=== PATIENT | female | born 1960 | race Caucasian/White ===

== ENCOUNTER 2019-11-18 08:40 | Outpatient (CLI) | payer OTHER, SELFPAY ==
--- NOTE | ~2019-11-18 | MM_ITS ---
EXAMINATION: MM screening kandy BI w андрей HISTORY: Screening mammogram TECHNIQUE: Craniocaudal and mediolateral oblique 3-D tomosynthesis images were obtained and synthetic 2-D images were generated. CAD analysis was submitted and interpreted. COMPARISON: No prior mammogram is available for comparison at this institution. BREAST PARENCHYMAL COMPOSITION: There are scattered areas of fibroglandular density. FINDINGS: RIGHT BREAST: There is no evidence of suspicious mass, calcification, or architectural distortion to suggest malignancy. LEFT BREAST: There is focal asymmetry in the posterior third of the upper outer quadrant of the breas t. IMPRESSION: 1. Focal asymmetry of the left breast which may represent the patient's baseline however no compariso n is currently available. 2. Comparison with prior mammograms is necessary. BI-RADS Category 0: Incomplete: Needs comparison with prior mammograms. Reviewed, dictated and finalized at location A. IMPRESSION: 1. Focal asymmetry of the left breast which may represent the patient's baselin e however no comparison is currently available. 2. Comparison with prior mammograms is necessary. BI-RADS Category 0: Incomplete: Needs comparison with prior mammograms.
== END 2019-11-18 08:41 | disposition home or self-care (01) ==
LOC: ANHIMG 08:44
PROVIDERS: PCP Family Medicine; Visit Provider Nurse Practitioner Family
DX: Z12.31 Encounter for screening mammogram for malignant neoplasm of breast (principal); R92.8 Other abnormal and inconclusive findings on diagnostic imaging of breast
CPT/HCPCS: 77063; 77067

== ENCOUNTER 2021-01-10 15:49 | Emergency (ER) | payer OTHER, SELFPAY ==
[2021-01-10 16:04] VITALS: BP 109/65; PULSE 79; RESP 18; TEMP 36.5; O2SAT 99
--- NOTE | 2021-01-10 16:12 | ED.URI ---
HPI - URI/Sore Throat General Chief Complaint: Upper Respiratory Infection Stated Complaint: Stuffy Nose,Sore throat,Fatigue History of Present Illness HPI Narrative: This is a 60 year old that comes in complaining of not feeling well for the past week. According to patient she is unvaccinated and she is having fatigue off and on and she is having sinus drainage with a headache sporadically some dizziness off and on . Patient denies taking anything for her symptoms. Related Data Home Medications Medication Instructions Recorded Confirmed meloxicam 15 mg tablet 15 mg PO DAILY 03/27/19 01/10/21 propranolol 20 mg tablet 20 mg PO Q12H 03/27/19 01/10/21 duloxetine 30 mg capsule,delayed 30 mg PO DAILY 03/29/19 01/10/21 release duloxetine 60 mg capsule,delayed 60 mg PO DAILY cap 03/29/19 01/10/21 release atorvastatin 10 mg tablet 10 mg PO DAILY tablet 12/10/20 01/10/21 sertraline 100 mg tablet 150 mg PO DAILY tablet 12/10/20 01/10/21 Allergies Allergy/AdvReac Type Severity Reaction Status Date / Time erythromycin base Allergy Unknown Rash Verified 01/10/21 16:32 Penicillins Allergy Unknown rash Verified 01/10/21 16:32 Review of Systems Review of Systems: CONSTITUTIONAL: Denies fever, chills, or sweats. EYES: Denies visual changes, redness, or discharge. ENT: reports rhinorrhea, congestion, sore throat, or otalgia. CARDIOVASCULAR:Denies chest pain, palpitations, or edema. RESPIRATORY: reports cough or dyspnea. GASTROINTESTINAL: Denies abdominal pain, nausea, vomiting, or diarrhea. GENITOURINARY: Denies dysuria or hematuria. SKIN:[Denies rash or itching. MUSCULOSKELETAL:Denies back pain, joint pain, or myalgia. NEUROLOGIC: Denies headache, numbness, or weakness. PSYCHIATRIC:Denies anxiety or depression [facility] Past Medical History Medical History (Updated 01/10/21 @ 16:48 by Lydia Gómez NP) History of broken nose History of trigger finger 2017 Surgical History Surgical History (Updated 12/30/20 @ 08:23 by Shannon Andrade NP-C) Hx of cervical spine surgery 1997 & 2012 Hx of laparoscopy Hx of oophorectomy Hx of tonsillectomy Family History Family History Father Heart disease Acute myocardial infarction Sibling Asthma Hypertension Social History Social History Smoking status: Never smoker Second hand tobacco smoke exposure: No Alcohol intake: current Alcohol use details: social Substance use: never Comments At time as signature, I have reviewed and agree with nursing past medical, social, surgical and family history. Please see nursing chart for further information. There is no relevant family history pertinent to the presenting complaint. Exam Narrative: GENERAL:Well-appearing, well-nourished, and in no acute distress. HEAD:Normocephalic EYES: PERRLA ENT: Nares clear, no rhinorrhea or epistaxis. Mucous membranes moist. Postnasal drainage noted NECK: Supple. CHEST: Clear to auscultation. No respiratory distress. HEART: Regular rate and rhythm. Normal peripheral pulses. ABDOMEN: Soft, nontender, nondistended, normal active bowel sounds. EXTREMITIES: Normal range of motion. No edema. SKIN: Warm, dry, no rash. NEURO: No focal deficits. Alert and oriented x3. 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
[2021-01-12 19:51] LABS: SARS-CoV-2 RNA PCR Negative
== END 2021-01-10 17:01 | disposition home or self-care (01) ==
PROVIDERS: Emergency Provider Nurse Practitioner Family; PCP Internal Medicine
DX: B34.9 Viral infection, unspecified (principal); J30.2 Other seasonal allergic rhinitis; Z20.822 Contact with and (suspected) exposure to COVID-19
CPT/HCPCS: 87426; 99213; C9803; G0463; U0003; U0005

== ENCOUNTER → 2021-04-15 13:01 | Outpatient (CLI) | payer OTHER, SELFPAY ==
--- NOTE | ~2021-04-15 | US_ITS ---
EXAMINATION: US thyroid EXAM DATE: 04/15/2021 13:28 INDICATION: Nontoxic goiter. TECHNIQUE: Multiple grayscale and Doppler images of the thyroid were obtained (by a technologist who performed the scan) and subsequently reviewed. Individual nodules and recommendations may be reporte d in accordance with TI-RADS system as designated by the 2017 ACR White Paper TI-RADS committee. The re is no prior study for comparison. FINDINGS: The right thyroid lobe measures 4.5 x 1.9 x 1.6 cm, the left measuring 4.2 x 1.7 x 1.8 cm. Homogeneou s thyroid echogenicity. In the left thyroid lobe there is a nodule measuring 1.8 x 1.0 x 1.0 cm, solid (2 points), hypoechoic (2 points), wider than tall, ill-defined margin, containing punctate echogenic foci consistent with microcalcification (3 points), category TR5 for this nodule. 4 mm contiguous nodule. In the right thyroid lobe there is a nodule measuring 1.5 x 0.9 x 1.0, mixed cystic and solid (1 poin t), hypoechoic (2 points), wider than tall, smooth well defined margin, with small echogenic foci whi ch appear to be along the deep aspects of small cystic spaces, category TR3 for this nodule. IMPRESSION: 1. Recommend ultrasound-guided biopsy of the dominant, left-sided thyroid nodule. Follow-up ultrasou nd in one year. 2. Mild thyromegaly. Reviewed, dictated and finalized at location A. FACTURING MILLWRIGHT IMPRESSION: 1. Recommend ultrasound-guided biopsy of the dominant, left-sided thyroid nodu le. Follow-up ultrasound in one year. 2. Mild thyromegaly.
== END ==
PROVIDERS: PCP Internal Medicine; Visit Provider Advanced Practice Midwife
DX: E04.1 Nontoxic single thyroid nodule (principal); E04.9 Nontoxic goiter, unspecified
CPT/HCPCS: 76536

== ENCOUNTER 2021-05-21 09:26 | Outpatient (CLI) | payer OTHER, SELFPAY ==
--- NOTE | ~2021-05-21 | US_ITS ---
EXAMINATION: US FNA w image guidance DATE: 05/21/2021 10:46 INDICATION: Nontoxic single thyroid nodule TECHNIQUE: A time-out was performed to verify the patient's name, date of , and procedure to be performed . The procedure and its benefits and risks were discussed with the patient. Risks specifically discus sed included bleeding and infection. The patient understood the risks and agreed to proceed. The neck was prepped and draped in the usual sterile manner. 3 mL 1% lidocaine was used for local anesthesia . 6 passes were made with a 25G needle into the lesion. Appropriate needle location was documented with continuous sonographic guidance. The specimens were passed to the medical technologist clinical in the room. A sterile bandage was applied. There were no immediate complications. FINDINGS: Grayscale ultrasound images demonstrate biopsy needles advanced into the 1.7 cm TI RADS 5 left thyroi d nodule of concern. IMPRESSION: 1. Successful ultrasound-guided fine needle aspiration of . Reviewed, dictated and finalized at location A. EL CAPTAIN
== END 2021-05-21 09:27 | disposition home or self-care (01) ==
LOC: ANHIMG 09:27
PROVIDERS: PCP Internal Medicine; Visit Provider Internal Medicine Endocrinology, Diabetes & Metabolism
DX: E04.1 Nontoxic single thyroid nodule (principal)
CPT/HCPCS: 10005; 88173; 88305

== ENCOUNTER 2021-08-26 17:21 | Outpatient (CLI) | payer OTHER, SELFPAY ==
--- NOTE | ~2021-08-26 | DEXA_ITS ---
Bone Density Report Name: JONO MUNGUIA Age: 61 Sex: Female Ethnicity: White Date of : 1960 Indication: postmenopausal; screening for osteoporosis; Referring Provider: CHARISMA VELASQUEZ Study: Bone densitometry was performed. Exam Date: August 26, 2021 Accession number: [id number] Bone Density: Region BMD T-score Z-score Classification AP Spine(L1, L4) 1.233 1.8 3.4 Normal Femoral Neck (Left) 0.909 0.5 2.0 Normal Total Hip (Left) 1.071 1.1 2.2 Normal Femoral Neck (Right) 0.925 0.7 2.1 Normal Total Hip (Right) 1.034 0.8 1.9 Normal Total Hip Mean 1.053 1.0 2.1 Normal World Health Organization criteria for BMD impression classify patients as: Normal (T-score at or above -1.0), Osteopenia (T-score between -1.0 and -2.5), or Osteoporosis (T-score at or below -2.5). Clinical Information Provided by Patient: Has used the following medications: Vitamin D Patient maximum height was 67 Menopause Age: 50 No regular weight bearing exercise Onset of menses at age 11 Number of children 0 Impression: The patient has normal bone mass. Discussion: BONE DENSITY IS ABOVE THE MINIMUM DESIRABLE LEVEL AT ALL SKELETAL SITES TESTED. This patient?s bone mineral density is above the minimum desirable level (T-score -1.0 or better) at all sites measured. The patient should follow a healthful lifestyle (good nutrition with adequate calcium and vitamin D, and appropriate weight-bearing exercise). Follow-Up: Consider repeating this study in 5 years or sooner if there is some new clinical indication. Reported by: LISY on 08/26/2021 5:51:00 PM. Reviewed, dictated and finalized at location Shanta MARSH
== END 2021-08-26 17:22 | disposition home or self-care (01) ==
PROVIDERS: PCP Nurse Practitioner; Visit Provider Advanced Practice Midwife
DX: M81.0 Age-related osteoporosis without current pathological fracture (principal)
CPT/HCPCS: 77080

== ENCOUNTER 2021-10-05 15:40 | Outpatient (CLI) | payer OTHER, SELFPAY ==
--- NOTE | ~2021-10-05 | MM_ITS ---
EXAMINATION: MM screening kandy BI w андрей HISTORY: Screening mammogram TECHNIQUE: Craniocaudal and mediolateral oblique 3-D tomosynthesis images were obtained and synthetic 2-D images were generated. CAD analysis was submitted and interpreted. COMPARISON: 11/18/2019, 09/24/2017, 02/02/2016 bilateral screening mammogram examinations BREAST PARENCHYMAL COMPOSITION: There are scattered areas of fibroglandular density. FINDINGS: There is no evidence of suspicious mass, calcification, or architectural distortion to sugg est malignancy in either breast. There has been no suspicious interval change. IMPRESSION: 1. No mammographic evidence of malignancy. 2. Recommend routine screening mammography in one year. BI-RADS Category 1: Negative Reviewed, dictated and finalized at location A.
== END 2021-10-05 15:41 | disposition home or self-care (01) ==
LOC: ANHIMG 15:41
PROVIDERS: PCP Nurse Practitioner; Visit Provider Advanced Practice Midwife
DX: Z12.31 Encounter for screening mammogram for malignant neoplasm of breast (principal)
CPT/HCPCS: 77063; 77067

== ENCOUNTER → 2022-09-01 15:49 | Outpatient (CLI) | payer OTHER, SELFPAY ==
--- NOTE | ~2022-09-01 | US_ITS ---
EXAMINATION: US thyroid DATE: 09/01/2022 16:15 INDICATION: Single thyroid nodule TECHNIQUE: Multiple ultrasound images of the thyroid were obtained. COMPARISON: 04/15/2021 FINDINGS: The right thyroid lobe measures 4.9 x 2.0 x 1.6 cm. The left thyroid lobe measures 4.5 x 1.7 x 1.5 c m. Slight decrease in size of a 1.6 cm solid hypoechoic wider than tall nodule with smooth echogenic margins and with punctate echogenic foci in the left thyroid lobe (TI-RADS 5, highly suspicious , FNA if >=1.0 cm, annual followup is >0.5 cm) with interval biopsy reported as consistent with benign fo llicular nodule with features of hemorrhagic cyst . There are two additional right thyroid nodules wi th identical imaging features, also TI RADS 5, the larger measuring 1.6 cm and the smaller measuring 5 mm, both without interval change. There is normal echotexture, echogenicity and vascular flow throu ghout the remainder of the thyroid gland. IMPRESSION: 1. No interval change in three TI-RADS 5 nodules with interval benign biopsy of the 1.6 cm left thyro id nodule. The second 1.6 cm nodule in the right thyroid would meet criteria for ultrasound-guided bi opsy although given the greater than one year of stability could consider continued annual follow-up. Reviewed, dictated and finalized at location A. IMPRESSION: 1. No interval change in three TI-RADS 5 nodules with interval benign biopsy of the 1.6 cm left thyroid nodule. The second 1.6 cm nodule in the right thyroid would meet criteria for ultrasound-guided biopsy although given the greater kevin n one year of stability could consider continued annual follow-up.
== END ==
PROVIDERS: PCP Internal Medicine Endocrinology, Diabetes & Metabolism; Visit Provider Internal Medicine Endocrinology, Diabetes & Metabolism
DX: E04.1 Nontoxic single thyroid nodule (principal)
CPT/HCPCS: 76536

== ENCOUNTER 2022-10-23 15:50 | Emergency (ER) | payer OTHER, SELFPAY ==
[2022-10-23 16:04] VITALS: BP 113/67; PULSE 70; RESP 16; TEMP 36.6; O2SAT 100
--- NOTE | 2022-10-23 16:19 | ED.EAR ---
HPI - Ear Problem General Chief complaint: Ear Stated complaint: L EARACHE Time Seen by Provider: 10/23/22 16:12 Source: patient, RN notes reviewed and old records reviewed Mode of arrival: ambulatory Limitations: no limitations History of Present Illness HPI Narrative: 62 year old female who presents to [facility] care with complaints of left ear pain since Monday but patient reports that she has had intermittent ear pain, sinus congestion with drainage, some headache discomfort intermittently for over 2 weeks. Patient reports that she took a meloxicam today for her discomfort and she was having some back ache also. Patient reports that she has not been taking any kind of decongestant or any antihistamines despite having increased sinus congestion and drainage. Patient denies any known fevers, chills or sweats. MD Complaint: ear pain and other (headache ,sinus congestion and drainage ) Location: left ear Duration: intermittent Severity: moderate Discharge from ear: Reports no Associated symptoms ear: headache, rhinorrhea and other (sinus congestion) Treatment prior to arrival: other (MELOXICAN) Related Data Home Medications Medication Instructions Recorded Confirmed magnesium with zinc PO 07/02/21 07/19/22 cholecalciferol (vitamin D3) 50 50 mcg PO DAILY 07/07/21 07/19/22 mcg (2,000 unit) capsule bupropion HCl 100 mg tablet,12 hr mg PO 10/23/22 10/23/22 sustained-release Allergies Allergy/AdvReac Type Severity Reaction Status Date / Time erythromycin base Allergy Unknown Rash Verified 10/23/22 16:02 Penicillins Allergy Unknown rash Verified 10/23/22 16:02 Review of Systems Review of Systems: CONSTITUTIONAL: Denies malaise, chills, sweats, or fever. EYES: Denies visual changes, redness, or discharge. ENT: Reports rhinorrhea, congestion, sinus pressure/ pain, otalgia and raspy sore throat today. CARDIOVASCULAR: Denies chest pain, palpitations, or edema. RESPIRATORY: Reports no cough.? Denies dyspnea. GASTROINTESTINAL: Denies abdominal pain, nausea, vomiting, diarrhea SKIN: Denies rash or itching. MUSCULOSKELETAL: Denies myalgia. NEUROLOGIC: Positive for frontal headaches All systems reviewed & are unremarkable except as noted in HPI and below PMFSH Past Medical History Medical History History of broken nose History of trigger finger 2017 Surgical History Surgical History Hx of cervical spine surgery 1997 & 2012 Hx of laparoscopy Hx of oophorectomy Hx of tonsillectomy Family History Family History Father Heart disease Acute myocardial infarction Sibling Asthma Hypertension Social History Social History Smoking status: Never smoker Second hand tobacco smoke exposure: No Alcohol intake: current Alcohol use details: social Substance use: never Substance use type: does not use Lack of Transportation: No Lack of Food: Sometimes True Current Housing: I Have Housing Concerned About Future Housing: No Difficulty Paying Gas/Electric Bills: No Difficulty Paying for Meds: No Currently Unemployed: No Education: High School Diploma/GED Difficulty w/ Childcare or Family Care: No Comments At time of signature, agree with nursing past medical, surgical, social and family history. There is no relevant family history pertinent to the presenting complaint Exam Narrative: GENERAL: Well-appearing, well-nourished, and in no acute distress. HEAD: Normocephalic EYES: PERRLA, conjunctivae clear ENT: Nares clear, turbinates edematous and erythematous, clear discharge. Mucous membranes moist. TM pearly jennings with dull light reflex bilaterally; no tragal tenderness. Oropharynx erythematous without lesions. Tonsils not present and
== END 2022-10-23 16:30 | disposition home or self-care (01) ==
PROVIDERS: Emergency Provider Registered Nurse; PCP Nurse Practitioner
DX: H92.02 Otalgia, left ear (principal); J06.9 Acute upper respiratory infection, unspecified
CPT/HCPCS: 99213; G0463

== ENCOUNTER 2023-03-22 12:47 | Outpatient (CLI) | payer OTHER, MEDICAID, SELFPAY ==
--- NOTE | ~2023-03-22 | US_ITS ---
EXAMINATION: US FNA w image guidance DATE: 03/22/2023 14:02 INDICATION: Right thyroid nodule. TECHNIQUE: The procedure and its benefits and risks were discussed with the patient. Risks specifically discusse d included bleeding. The patient verbalized understanding of the risks and agreed to proceed. The nec k was prepped and draped in the usual sterile manner. 1% lidocaine was used for local anesthesia. 6 passes were made with a 25G needle into the lesion under ultrasound guidance. There were no immedia te complications. FINDINGS: Grayscale ultrasound images demonstrate needles advanced into a 1.7 cm nodule in right thyroid lobe f or biopsy. IMPRESSION: 1. Ultrasound-guided fine needle aspiration of a right thyroid nodule. Reviewed, dictated and finalized at location A. STOCK CARETAKER
== END 2023-03-22 12:48 | disposition home or self-care (01) ==
PROVIDERS: PCP Nurse Practitioner Family; Visit Provider Internal Medicine
DX: E04.2 Nontoxic multinodular goiter (principal)
CPT/HCPCS: 10005; 88173; 88305

== ENCOUNTER 2024-08-07 07:30 | Outpatient (CLI) | payer OTHER, MEDICARE, SELFPAY ==
--- OUTSIDE RECORDS SUMMARY | 2024-08-07 07:39 | XMS_ITS | Clinical Summary ---
Author Organization [facility] Address [address] [place] [address] Care Team Providers Care Community Manager Name Role Phone Unavailable Primary Care Provider Unavailabl e Source Comments [facility],non-owned Affiliates and Associated Physician Practices is amultiple site organization consisting of ambulatory clinics and hospital sitesin [place], [place], [place] and [place]. This disclosure is being madepursuant to the Care Everywhere program and may not contain all information available regarding this patient. Last updated 18.[facility] Allergies Active Allergy Reactions Criticality Noted Date Comments Erythromycin 01/11/2017 Penicillins 01/11/2017 Medications * Be aware that medications may not be up to date on this document. Alwaysverify current medications with the patient. Medication Sig Dispensed Refills Start Date End Date Status CLONAZEPAM PO Active SPIRONOLACTONE PO Active DULoxetine HCl (CYMBALTA PO) Active TRAMADOL HCL EX Active Social History Tobacco Use Types Packs/Day Years Used Date Smoking Tobacco: Never Smokeless Tobacco: Never Sex and Gender Information Value Date Recorded Sex Assigned at Not on file Gender Identity Not on file Sexual Orientation Not on file Last Filed Vital Signs Vital Sign Reading Time Taken Comments Blood Pressure 108/62 01/22/2017 10:55 AM CDT Pulse 89 01/22/2017 10:55 AM CDT Temperature 36.8 C (98.2 F) 01/22/2017 10:55 AM CDT Respiratory Rate 16 01/22/2017 10:55 AM CDT Oxygen Saturation 96% 01/22/2017 10:55 AM CDT Inhaled Oxygen Concentration - - Weight 71.2 kg (157 lb) 01/22/2017 10:55 AM CDT Height 170.2 cm (5' 7 ) 01/22/2017 10:55 AM CDT Body Mass Index 24.59 01/22/2017 10:55 AM CDT Plan of Treatment Health Maintenance Due Date Last Done Comments BONE DENSITY TESTING 1960 COLOGUARD (AGES 45-75) - COL ON CA SCREENING 1960 COLON MONITORING 1960 COLONOSCOPY - COLON CA SCREENING 1960 CT COLONOGRAPHY - COLON CA SCREENING 1960 Colorectal Cancer Screening 1960 FIT - COLON CA SCREENING 1960 FLEX SIG - COLON CA SCREENING 1960 LIPID TESTING 1960 MAMMOGRAM 1960 HEPATITIS C SCREENING 02/28/1976 DTAP/TDAP/TD VACCINES (1 - Tdap) 1977 PNEUMOCOCCAL VACCINE 50+ (1 of 1 - PCV) 2008 ZOSTER VACCINE (1 of 2) 2008 COVID-19 VACCINE (1 - 2023-2 5 season) 2024 INFLUENZA VACCINE (#1) 2024 DEPRESSION SCREENING 05/08/2024 Respiratory Syncytial Virus (RSV) Vaccine Pt: or over 60 yrs (1 - 1-dose 75+ series) 2033 HEPATITIS B VACCINE Aged Out No longe r eligible based on patient's age to complete this topic HIB VACCINE Aged Out No longer eligi ble based on patient's age to complete this topic HPV VACCINE Aged Out No longer eligi ble based on patient's age to complete this topic MENINGOCOCCAL (Group B) VACC INE SHARED DECISION-MAKING Aged Out No longer eligibl e based on patient's age to complete this topic MENINGOCOCCAL GROUPS A/C/Y/W VACCINE Aged Out No longer eligible b ased on patient's age to complete this topic
--- OUTSIDE RECORDS SUMMARY | 2024-08-07 07:39 | XMS_ITS | Encounter Summary ---
Author Organization [facility] Address [address] [place] [address] Phone Care Team Providers Care Insole Coverer Name Role Phone Shania Avalos NP Primary Care Provider [phone] Encounter Details Date Type Department Care Team (Late st Contact Info) Description 07/31/2017 Orders Only [facility] ProviderTheodore MD [address] [place] [id number] Social History Tobacco Use Types Packs/Day Years Used Date Smoking Tobacco: Never Smokeless Tobacco: Never Alcohol Use Standard Drinks/Week Comments Yes 0 (1 standard drink = 0.6 oz pur e alcohol) 2 weekly Comments Unknown Sex and Gender Information Value Date Recorded Sex Assigned at Not on file Legal 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 Historical Provider LAB BLOOD ORDERABLES Angie l Result documented in this encounter Visit Diagnoses Not on filedocumented in this encounter Care Teams Insole Coverer Relationship Specialty Start Date End Date Shania Avalos NP PCP - General 05/31/17 documented as of this encounter
--- OUTSIDE RECORDS SUMMARY | 2024-08-07 07:39 | XMS_ITS ---
Author Organization [facility] Address [address] [facility] [address] [place] [address] Care Team Providers Care Metal Cutter Name Role Phone Jane KATZ Primary Care Provider Nat Huynh Unavailable [phone] REASON FOR VISIT New Refill Request Medications Medication SIG (Take, Route, Frequency, Duration) Notes Start Date End Date Status buPROPion HCl ER (SR) 150 MG 1 tablet in the morning Oral Once a day for 90 days Active Social History Sex Assigned At : Social History Observation Description Sex Assigned At Female Encounters Encounter Location Date Provider Diagnosis [facility] [address] [facility] [address] [place] [address] 06/24/2024 Nat Guzman Severe episode of recurrent major depressive disorder, without psychotic features F33.2 Assessments Encounter Date Diagnosis (ICD Code) Assessment Notes Treatment Notes Treatment Clinical Notes Section Notes 06/24/2024 Severe episode of recurrent major depressive disorder, without psychotic features (ICD-10 - F33.2) Plan Of Treatment Medication Medication Name Sig Start Date Stop Date Notes buPROPion HCl ER (SR) 150 MG 1 tablet in the morning Oral Once a day for 90 days Next Appt Details Provider Name:Nat alas, 08/12/2024 04:30:00 PM, [address], [facility] [address], [place], [address], Progress Notes * JONO MUNGUIA KDOB:1960 (64 yo F)Acc No.[id number]:06/24/2024 Patient: JONO STRICKLAND :1960 A ge:64 Y S ex:Female Address:[address], [place], [address] * Refills Refill buPROPion HCl ER (SR) Tablet Extended Release 12 Hour, 150 MG, Oral, 90 Tablet, 1 tablet in the morning, Once a day, 90 days, Refills=0 * true * Date: Generated for Fabián rico/Wade/Nicholasitting on: 0 08/07/2024 07:38 AM CDT
--- OUTSIDE RECORDS SUMMARY | 2024-08-07 07:39 | XMS_ITS | Patient Health Record ---
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 Name Role Phone JAEL Nikhil MCALLISTERa Primary Care Provider Unavailab Nat Hein Unavailable [phone] SwapnilFarhana rice Unavailable [phone] Migration, Provider Unavailable Unavailable Allergies Allergen (clinical drug ingredient) Drug/Non Drug Allergy documented on EMR Reaction Allergy Type Onset Date Status erythromycin Erythromycin Base Unknown Drug Allergy 2023 Active Substance with penicillin structure and antibacterial mechanism of action (substance) Penicillins Unknown Drug Allergy 07/28/2023 Active Reason For Referral No Information Medications Medication SIG (Take, Route, Frequency, Duration) Notes Start Date End Date Status Propranolol HCl 20 MG Oral 07/28/2023 Active DULoxetine HCl 30 MG 1 capsule Oral Once a day total dose 90mg Active traZODone HCl 50 MG take 1/2 to 1 tablet at bedtime as needed for insomnia Oral Once a day for 30 days Not-Taking DULoxetine HCl 60 MG 1 capsule Oral Once a day total dose 90mg Active Meloxicam 15 MG Oral 07/28/2023 Act john buPROPion HCl ER (SR) 150 MG 1 tablet in the morning Oral Once a day Active Atorvastatin Calcium 10 MG Oral 07/28/2023 Active clonazePAM 1 MG Oral 07/28/2023 Act john Social History Tobacco Use: Social History Observation Description Date Details (start date - stop date) Never Smoker NA - NA Sex Assigned At : Social History Observation Description Sex Assigned At Female Household Question Answer Notes Marital status: single Number of adults in household: 1 Tobacco Control (Standard) Question Answer Notes Tobacco use: Nonsmoker AUDIT-C (Standard) Question Answer Notes Interpretation Positive Did you have a drink contain ing alcohol in the past year? Yes How often did you have six o r more drinks on one occasion in the past year? Never (0 point) How many drinks did you have on a typical day when you were drinking in the past year? 1 or 2 drinks (0 point) How often did you have a dri nk containing alcohol in the past year? 2 to 4 times a month (2 points) Section Notes: Substance Use Do you or have you ever smoked tobacco?: Never smoker How much tobacco do you smoke?: None Do you or have you ever used any other forms of tobacco or nicotine?: No Do you or have you ever used e-cigarettes or vape?: Never used electronic cigarettes What was the date of your most recent tobacco screening?: 09/23/2022 Has tobacco cessation counseling been provided?: No What is your level of alcohol consumption?: Occasional How many years have you consumed alcohol?: 44 Have you ever been counseled for unhealthy alcohol use?: No Do you use any illicit or recreational drugs?: No Which illicit or recreational drugs have you used?: None Have you used IV drugs?: No What is your level of caffeine consumption?: Moderate Education and Occupation What is the highest grade or level of school you have completed or the highest degree you have received?: High school graduate Are you currently employed?: Yes Who is your employer?: [employer] Marriage and Sexuality What is your relationship status?: Single Are you sexually active?: No Do you use protection during sex?: No How many children do you have?: 1 Home and Environment Are there any guns present in your home?: No Advance Directive Do you have an advance directive?: No Do you have a medical power of assistant city attorney?: No Substance Use Do you or have you ever smoked tobacco?: Never smoker How much tobacco do you smoke?: None Do you or have you ever used any other forms of tobacco or nicotine?: No Do you or have you ever used e-cigarettes or vape?: Never used electronic cigarettes What was the date of your most recent tobacco screening?: 09/23/2022 Has tobacco cessation counseling been provided?: No What is your level of alcohol consumption?: Occasional How many years have you consumed alcohol?: 44 Have you ever been counseled for unhealthy alcohol use?: No Do you use any illicit or recreational drugs?: No Which illicit or recreational drugs have you used?: None Have you used IV drugs?: No What is your level of caffeine consumption?: Moderate Education and Occupation What is the highest grade or level of school you have completed or the highest degree you have received?: High school graduate Are you currently employed?: Yes Who is your employer?: [employer] Marriage and Sexuality What is your relationship status?: Single Are you sexually active?: No Do you use protection during sex?: No How many children do you have?: 1 Home and Environment Are there any guns present in your home?: No Lifestyle Do you feel stressed (tense, restless, nervous, or anxious, or unable to sleep at night)?: To some extent Advance Directive Do you have an advance directive?: No Do you have a medical power of assistant city attorney?: No Substance Use Do you or have you ever smoked tobacco?: Never smoker How much tobacco do you smoke?: None Do you or have you ever used any other forms of tobacco or nicotine?: No Do you or have you ever used e-cigarettes or vape?: Never used electronic cigarettes What was the date of your most recent tobacco screening?: 09/23/2022 Has tobacco cessation counseling been provided?: No What is your level of alcohol consumption?: Occasional How many years have you consumed alcohol?: 44 Have you ever been counseled for unhealthy alcohol use?: No Do you use any illicit or recreational drugs?: No Which illicit or recreational drugs have you used?: None Have you used IV drugs?: No What is your level of caffeine consumption?: Moderate Education and Occupation What is the highest grade or level of school you have completed or the highest degree you have received?: High school graduate Are you currently employed?: Yes Who is your employer?: [employer] Marriage and Sexuality What is your relationship status?: Single Are you sexually active?: No Do you use protection during sex?: No How many children do you have?: 1 Home and Environment Are there any guns present in your home?: No Lifestyle Do you feel stressed (tense, restless, nervous, or anxious, or unable to sleep at night)?: To some extent Advance Directive Do you have an advance directive?: No Do you have a medical power of assistant city attorney?: No Substance Use Do you or have you ever smoked tobacco?: Never smoker How much tobacco do you smoke?: None Do you or have you ever used any other forms of tobacco or nicotine?: No Do you or have you ever used e-cigarettes or vape?: Never used electronic cigarettes What was the date of your most recent tobacco screening?: 09/23/2022 Has tobacco cessation counseling been provided?: No What is your level of alcohol consumption?: Occasional How many years have you consumed alcohol?: 44 Have you ever been counseled for unhealthy alcohol use?: No Do you use any illicit or recreational drugs?: No Which illicit or recreational drugs have you used?: None Have you used IV drugs?: No What is your level of caffeine consumption?: Moderate Education and Occupation What is the highest grade or level of school you have completed or the highest degree you have received?: High school graduate Are you currently employed?: Yes Who is your employer?: [employer] Marriage and Sexuality What is your relationship status?: Single Are you sexually active?: No Do you use protection during sex?: No How many children do you have?: 1 Home and Environment Are there any guns present in your home?: No Advance Directive Do you have an advance directive?: No Do you have a medical power of assistant city attorney?: No Problems Problem Type SNOMED Code ICD Code Onset Dates Problem Status W/U Status Risk Notes Problem Moderate recurrent major depression (31510610) Major depressive disorder, recurrent, moderate (F33.1) Active confirmed Problem Generalized anxiety disorder (09639952) Generalized anxiety disorder (F41.1) 4 Active confirmed Problem Essential tremor (921256153) Essential tremor (G25.0) 4 Active confirmed Problem Obstructive sleep apnea syndrome (disorder) (04208388) Obstructive sleep apnea (adult) (pediatric) (G47.33) 4 Active confirmed Problem Sleep disorder (37590402) Sleep disorder, unspecified (G47.9) 4 Active confirmed Problem Severe recurrent major depression without psychotic features (56401346) Severe episode of recurrent major depressive disorder, without psychotic features (F33.2) Active confirmed Problem Insomnia disorder related to another mental disorder (79143357) Insomnia related to another mental disorder (F51.05) Active confirmed Problem Adjustment disorder with depressed mood (18042703) Grief reaction (F43.21) Active confirmed Vital Signs Heart Rate 102 /min 06/28/2024 Height-cm 170.18 cm 06/28/2024 Blood pressure diastolic 80 mm Hg 06/28/2024 Weight-kg 84.82 kg 06/28/2024 Height 67.00 in 06/28/2024 Blood pressure systolic 121 mm Hg 06/28/2024 Weight 187 lbs 06/28/2024 BMI 29.29 kg/m2 06/28/2024 Encounters Encounter Location Date Provider Diagnosis [facility] [place] [id number] [facility] [address] [address] 09/27/2023 Farhana De La Fuente [facility] [place] [address] [facility] [address] [address] 10/25/2023 Farhana De La Fuente Severe episode of recurrent major depressive disorder, without psychotic features F33.2 ; Generalized anxiety disorder F41.1 ; Insomnia related to another mental disorder F51.05 ; Grief reaction F43.21 ; Sleep disorder, unspecified G47.9 ; Obstructive sleep apnea (adult) (pediatric) G47.33 and Essential tremor G25.0 [facility] [place] [address] [address] 11/23/2023 Farhana De La Fuente Severe episode of recurrent major depressive disorder, without psychotic features F33.2 ; Generalized anxiety disorder F41.1 ; Insomnia related to another mental disorder F51.05 ; Grief reaction F43.21 ; Sleep disorder, unspecified G47.9 ; Obstructive sleep apnea (adult) (pediatric) G47.33 and Essential tremor G25.0 [facility] [place] [address] [address] 02/28/2024 Farhana De La Fuente Severe episode of recurrent major depressive disorder, without psychotic features F33.2 ; Generalized anxiety disorder F41.1 ; Insomnia related to another mental disorder F51.05 ; Grief reaction F43.21 ; Sleep disorder, unspecified G47.9 ; Obstructive sleep apnea (adult) (pediatric) G47.33 and Essential tremor G25.0 [facility] [place] [address] [address] 05/03/2024 Nat Guzman Generalized anxiety disorder F41.1 ; Major depressive disorder, recurrent, moderate F33.1 ; Sleep disorder, unspecified G47.9 ; Grief reaction F43.21 ; Obstructive sleep apnea (adult) (pediatric) G47.33 and Insomnia related to another mental disorder F51.05 [place] [address] [facility] [address] [place] [address] 06/28/2024 Nat Guzman Generalized anxiety disorder F41.1 ; Major depressive disorder, recurrent, moderate F33.1 ; Grief reaction F43.21 ; Sleep disorder, unspecified G47.9 ; Obstructive sleep apnea (adult) (pediatric) G47.33 ; Essential tremor G25.0 ; Encounter for screening for cardiovascular disorders Z13.6 and Encounter for screening for depression Z13.31 [facility] [place] [address] [facility] [address] [place] [address] 09/23/2023 Provider Migration [place] [address] [address] 09/24/2023 Provider Migration [facility], [place] [address] [address] [address] 09/26/2023 Provider Migration [facility], [place] [address] [address] [address] 12/04/2023 Farhana De La Fuente [facility], [place] [address] [address] 06/24/2024 Nat Guzman [place] [address] [facility] [address] [place] [address] 12/04/2023 Farhana De La Fuente [facility], [place] [address] [facility] [address] [place] [address] 05/19/2024 Nat Guzman Severe episode of recurrent major depressive disorder, without psychotic features F33.2 [facility] [place] [place] [address] [facility] [address] [place] [address] 06/24/2024 Nat Guzman [facility], [place] [address] [facility] [address] [place] [address] 06/24/2024 Nat Guzman Severe episode of recurrent major depressive disorder, without psychotic features F33.2 Assessments Encounter Date Diagnosis (ICD Code) Assessment Notes Treatment Notes Treatment Clinical Notes Section Notes 10/25/2023 Generalized anxiety disorder (ICD-10 - F41.1) meds, therapy as above (also has propranolol/tr emors and bzo/sleep from other providers) 10/25/2023 Severe episode of recurrent major depressive disorder, without psychotic features (ICD-10 - F33.2) cont sertraline 50mg dailycont wellbutrin SR 150mg qamcont duloxetine 90mg daily (60+30) cont therapy highly recommend IOP program [facility]; Need Support Now? If you or someone you know is struggling or in crisis, help is available. Call or text 274 or chat [employer]. reactive mood to interpersonal stressors options IOP-highly recommend; declines inpt-not current SI, plan or intent; but still some concern; she declines and not clear imminent threat of harm in my opinion, does not meet involuntary criteria, discuss safety planning, reach out to friends, our office, therapist, 988 go to ER. raheem-pros/ cons, is unsure, will think about it increase duloxetine, sertraline or wellbutrin, add seroquel, pros/cons; says sleep is her biggest concern if can sleep better could manage better (though some is sleep hygiene) note also does have clonaz 1mg qhs from elsewhere plan try trazodone first, 50mg can take 1/2 tab, if not benefit can call and may try 100mg, review r/b/se, polypharmacy, serotonin syndrome, caution sedation/falls , etc. if still no benefit may switch to seroquel thinks will do better with vacation coming up, did feel better when went out of town for f/u 1 month, after back from road trip, earlier if concerns 11/23/2023 Severe episode of recurrent major depressive disorder, without psychotic features (ICD-10 - F33.2) cont sertraline 50mg dailycont wellbutrin SR 150mg qamcont duloxetine 90mg daily (60+30) cont therapy 9[facility]; Need Support Now? If you or someone you know is struggling or in crisis, help is available. Call or text 989 or chat [employer]. has tried trazodone a few times helpful for sleep did better while on vacation, some more sx since back, but also stress of dealnig with mother's estate discuss options to increase sertraline to prior dose, or other change, she wants to wait and see how does after close on her mother's house. discuss self-care. cont therapy f/u in 6 wks, earlier if concerns notes: reactive mood to interpersonal stressors has declined IOP 02/28/2024 Severe episode of recurrent major depressive disorder, without psychotic features (ICD-10 - F33.2) cont sertraline 50mg dailycont wellbutrin SR 150mg qamcont duloxetine 90mg daily (60+30) cont therapy sx persist, discuss med options, she does not want to change meds, feels is situational and needs to change other things. Education meds and treatment course. brief discussion TMS or Spravato, does not feel can manage the time commitment/mis sing work with her job cont therapy f/u in 2 months, earlier if concerns -discussed transition to new provider as I am leaving the practice after this month notes: reactive mood to interpersonal stressors has declined IOP 05/03/2024 Major depressive disorder, recurrent, moderate (ICD-10 - F33.1) refills not needed at this time Insomnia - Difficulty falling asleep and staying asleep - History of using trazodone, discontinued due to difficulty waking up for work Plan: - Encourage good sleep hygiene - Consider referral to sleep specialist for alternative sleep aids if insomnia persists Depression and Anxiety - Tough year with loss of family members and estrangement from sister - Upcoming visit from daughter with history of drug addiction and legal issues - Current medications: Sertraline 50 mg, Wellbutrin 150 mg, Duloxetine 90 mg Plan: - Increase sertraline to 75 mg daily - Follow-up in 4-6 weeks to assess response and provide support Weight gain and poor appetite - Gained 20 pounds in last 3 years due to lifestyle changes and emotional eating - Reports under-eating and lack of motivation to cook Plan: - Encourage regular physical activity - Consider referral for nutritional counseling - Monitor weight and appetite at follow-ups Daughter's mental health and substance abuse - Daughter has history of bipolar disorder and methamphetamine addiction - Concerns about daughter's eligibility for state insurance and treatment options Plan: - Encourage exploration of local mental health and substance abuse treatment resources - Offer support and guidance as needed Sleep disorders - Reports two sleep disorders, including REM sleep behavior disorder - Currently taking clonazepam for sleep Plan: - Continue clonazepam as prescribed - Encourage follow-up with sleep specialist for ongoing management Follow-up in 6 weeks to assess response to medication adjustment and provide support 05/03/2024 Generalized anxiety disorder (ICD-10 - F41.1) Insomnia - Difficulty falling asleep and staying asleep - History of using trazodone, discontinued due to difficulty waking up for work Plan: - Encourage good sleep hygiene - Consider referral to sleep specialist for alternative sleep aids if insomnia persists Depression and Anxiety - Tough year with loss of family members and estrangement from sister - Upcoming visit from daughter with history of drug addiction and legal issues - Current medications: Sertraline 50 mg, Wellbutrin 150 mg, Duloxetine 90 mg Plan: - Increase sertraline to 75 mg daily - Follow-up in 4-6 weeks to assess response and provide support Weight gain and poor appetite - Gained 20 pounds in last 3 years due to lifestyle changes and emotional eating - Reports under-eating and lack of motivation to cook Plan: - Encourage regular physical activity - Consider referral for nutritional counseling - Monitor weight and appetite at follow-ups Daughter's mental health and substance abuse - Daughter has history of bipolar disorder and methamphetamine addiction - Concerns about daughter's eligibility for state insurance and treatment options Plan: - Encourage exploration of local mental health and substance abuse treatment resources - Offer support and guidance as needed Sleep disorders - Reports two sleep disorders, including REM sleep behavior disorder - Currently taking clonazepam for sleep Plan: - Continue clonazepam as prescribed - Encourage follow-up with sleep specialist for ongoing management Follow-up in 6 weeks to assess response to medication adjustment and provide support 05/19/2024 Severe episode of recurrent major depressive disorder, without psychotic features (ICD-10 - F33.2) 06/24/2024 Severe episode of recurrent major depressive disorder, without psychotic features (ICD-10 - F33.2) 06/28/2024 Major depressive disorder, recurrent, moderate (ICD-10 - F33.1) Major Depressive Disorder Assessment: Patient reports worsening depression symptoms, including feeling numb, indifferent, and just going through the motions. Recent stressors include the one-year anniversary of her mother's , strained family relationships, and concerns about her homeless daughter. Patient has a history of depression since shortly after her daughter's and has been on Prozac in the past. Currently on duloxetine 90 mg, bupropion 150 mg, and sertraline 25 mg. Plan: - Discontinue sertraline: Taper by breaking 25 mg tablet in half for a few days, then stop completely - Continue duloxetine 90 mg daily - Initiate bupropion 150 mg daily in the morning - Explore newer antidepressant options at next visit if needed; discuss TRD options if adequate trial of bupropion fails to achieve adequate response - Follow up in 4 weeks to assess response to medication changes Generalized Anxiety Disorder Assessment: Patient reports anxiety has been more even-keeled recently. However, she experienced increased anxiety during [place] wildfires due to concerns about her daughter's safety. Patient has a history of anxiety and has tried various medications in the past, including Prozac, Paxil, and BuSpar. Plan: - Continue current medication regimen as outlined in depression management plan - Reassess anxiety symptoms at follow-up visit in 4 weeks Family Conflict Assessment: Patient reports strained relationships with family members, including her sister and stepfather. She feels excluded from family events and avoids social media due to emotional distress. Patient is adopting a cat for companionship. Plan: - Continue counseling sessions (patient has appointment scheduled for 11:30) - Encourage ongoing engagement with supportive activities, such as caring for the newly adopted cat Concern for Adult Daughter Assessment: Patient expresses worry about her 31-year-old daughter who is homeless in [place]. Last contact was on May 02, with the daughter reporting plans to obtain identification and move to [place]. 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 Plan: - Provide supportive listening and validate patient's concerns - Encourage patient to maintain open communication channels with daughter when possible - Address this ongoing stressor in future therapy sessions Future plans and goals - Expresses interest in moving to [place] and buying a small house Plan: - Encourage exploration of this option as a potential positive change Follow-up in 4 weeks to assess response to medication changes and overall mental health status 06/28/2024 Generalized anxiety disorder (ICD-10 - F41.1) Major Depressive Disorder Assessment: Patient reports worsening depression symptoms, including feeling numb, indifferent, and just going through the motions. Recent stressors include the one-year anniversary of her mother's , strained family relationships, and concerns about her homeless daughter. Patient has a history of depression since shortly after her daughter's and has been on Prozac in the past. Currently on duloxetine 90 mg, bupropion 150 mg, and sertraline 25 mg. Plan: - Discontinue sertraline: Taper by breaking 25 mg tablet in half for a few days, then stop completely - Continue duloxetine 90 mg daily - Initiate bupropion 150 mg daily in the morning - Explore newer antidepressant options at next visit if needed; discuss TRD options if adequate trial of bupropion fails to achieve adequate response - Follow up in 4 weeks to assess response to medication changes Generalized Anxiety Disorder Assessment: Patient reports anxiety has been more even-keeled recently. However, she experienced increased anxiety during [place] wildfires due to concerns about her daughter's safety. Patient has a history of anxiety and has tried various medications in the past, including Prozac, Paxil, and BuSpar. Plan: - Continue current medication regimen as outlined in depression management plan - Reassess anxiety symptoms at follow-up visit in 4 weeks Family Conflict Assessment: Patient reports strained relationships with family members, including her sister and stepfather. She feels excluded from family events and avoids social media due to emotional distress. Patient is adopting a cat for companionship. Plan: - Continue counseling sessions (patient has appointment scheduled for 11:30) - Encourage ongoing engagement with supportive activities, such as caring for the newly adopted cat Concern for Adult Daughter Assessment: Patient expresses worry about her 29-year-old daughter who is homeless in [place]. Last contact was on May 02, with the daughter reporting plans to obtain identification and move to [place]. 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 Plan: - Provide supportive listening and validate patient's concerns - Encourage patient to maintain open communication channels with daughter when possible - Address this ongoing stressor in future therapy sessions Future plans and goals - Expresses interest in moving to [place] and buying a small house Plan: - Encourage exploration of this option as a potential positive change Follow-up in 4 weeks to assess response to medication changes and overall mental health status 05/03/2024 Sleep disorder, unspecified (ICD-10 - G47.9) Insomnia - Difficulty falling asleep and staying asleep - History of using trazodone, discontinued due to difficulty waking up for work Plan: - Encourage good sleep hygiene - Consider referral to sleep specialist for alternative sleep aids if insomnia persists Depression and Anxiety - Tough year with loss of family members and estrangement from sister - Upcoming visit from daughter with history of drug addiction and legal issues - Current medications: Sertraline 50 mg, Wellbutrin 150 mg, Duloxetine 90 mg Plan: - Increase sertraline to 75 mg daily - Follow-up in 4-6 weeks to assess response and provide support Weight gain and poor appetite - Gained 20 pounds in last 3 years due to lifestyle changes and emotional eating - Reports under-eating and lack of motivation to cook Plan: - Encourage regular physical activity - Consider referral for nutritional counseling - Monitor weight and appetite at follow-ups Daughter's mental health and substance abuse - Daughter has history of bipolar disorder and methamphetamine addiction - Concerns about daughter's eligibility for state insurance and treatment options Plan: - Encourage exploration of local mental health and substance abuse treatment resources - Offer support and guidance as needed Sleep disorders - Reports two sleep disorders, including REM sleep behavior disorder - Currently taking clonazepam for sleep Plan: - Continue clonazepam as prescribed - Encourage follow-up with sleep specialist for ongoing management Follow-up in 6 weeks to assess response to medication adjustment and provide support 06/28/2024 Grief reaction (ICD-10 - F43.21) Grief and loss resources: [facility] Grief [address] [place], [place] [address] website: [email or web address]://[email or web address]/email: [email or web address] [facility] (has information, links to articles, courses, other organizations that address grief)https://ww w.[email or web address].org /knowledge-cente r/mental-health- resources/grief- kia-liqq-uffytde es mother, june 27 Major Depressive Disorder Assessment: Patient reports worsening depression symptoms, including feeling numb, indifferent, and just going through the motions. Recent stressors include the one-year anniversary of her mother's , strained family relationships, and concerns about her homeless daughter. Patient has a history of depression since shortly after her daughter's and has been on Prozac in the past. Currently on duloxetine 90 mg, bupropion 150 mg, and sertraline 25 mg. Plan: - Discontinue sertraline: Taper by breaking 25 mg tablet in half for a few days, then stop completely - Continue duloxetine 90 mg daily - Initiate bupropion 150 mg daily in the morning - Explore newer antidepressant options at next visit if needed; discuss TRD options if adequate trial of bupropion fails to achieve adequate response - Follow up in 4 weeks to assess response to medication changes Generalized Anxiety Disorder Assessment: Patient reports anxiety has been more even-keeled recently. However, she experienced increased anxiety during [place] wild[place] due to concerns about her daughter's safety. Patient has a history of anxiety and has tried various medications in the past, including Prozac, Paxil, and BuSpar. Plan: - Continue current medication regimen as outlined in depression management plan - Reassess anxiety symptoms at follow-up visit in 4 weeks Family Conflict Assessment: Patient reports strained relationships with family members, including her sister and stepfather. She feels excluded from family events and avoids social media due to emotional distress. Patient is adopting a cat for companionship. Plan: - Continue counseling sessions (patient has appointment scheduled for 11:30) - Encourage ongoing engagement with supportive activities, such as caring for the newly adopted cat Concern for Adult Daughter Assessment: Patient expresses worry about her 29-year-old daughter who is homeless in [place]. Last contact was on May 02, with the daughter reporting plans to obtain identification and move to [place]. 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 Plan: - Provide supportive listening and validate patient's concerns - Encourage patient to maintain open communication channels with daughter when possible - Address this ongoing stressor in future therapy sessions Future plans and goals - Expresses interest in moving to [place] and buying a small house Plan: - Encourage exploration of this option as a potential positive change Follow-up in 4 weeks to assess response to medication changes and overall mental health status 02/28/2024 Generalized anxiety disorder (ICD-10 - F41.1) meds, therapy as above (also has propranolol/tr emors and bzo/sleep from other providers) 10/25/2023 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) start trazodone 50mg tab, take 1/2 to 1 tab qhs prn insomnia (may also benefit mood and anxiety) work on better sleep hygiene 11/23/2023 Generalized anxiety disorder (ICD-10 - F41.1) meds, therapy as above (also has propranolol/tr emors and bzo/sleep from other providers) 10/25/2023 Grief reaction (ICD-10 - F43.21) Grief and loss resources: [facility] Grief [address] [place] [id number] website: [email or web address]/email: [email or web address] (has information, links to articles, courses, other organizations that address grief)https://ww w.[email or web address].org /knowledge-cente r/mental-health- resources/grief- yep-glrw-gryrhga es mother, june 27 11/23/2023 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) cont trazodone 50mg tab, take 1/2 to 1 tab qhs prn insomnia (may also benefit mood and anxiety) work on better sleep hygiene 02/28/2024 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) improving stopped trazodone 50mg work on better sleep hygiene 05/03/2024 Grief reaction (ICD-10 - F43.21) Insomnia - Difficulty falling asleep and staying asleep - History of using trazodone, discontinued due to difficulty waking up for work Plan: - Encourage good sleep hygiene - Consider referral to sleep specialist for alternative sleep aids if insomnia persists Depression and Anxiety - Tough year with loss of family members and estrangement from sister - Upcoming visit from daughter with history of drug addiction and legal issues - Current medications: Sertraline 50 mg, Wellbutrin 150 mg, Duloxetine 90 mg Plan: - Increase sertraline to 75 mg daily - Follow-up in 4-6 weeks to assess response and provide support Weight gain and poor appetite - Gained 20 pounds in last 3 years due to lifestyle changes and emotional eating - Reports under-eating and lack of motivation to cook Plan: - Encourage regular physical activity - Consider referral for nutritional counseling - Monitor weight and appetite at follow-ups Daughter's mental health and substance abuse - Daughter has history of bipolar disorder and methamphetamine addiction - Concerns about daughter's eligibility for state insurance and treatment options Plan: - Encourage exploration of local mental health and substance abuse treatment resources - Offer support and guidance as needed Sleep disorders - Reports two sleep disorders, including REM sleep behavior disorder - Currently taking clonazepam for sleep Plan: - Continue clonazepam as prescribed - Encourage follow-up with sleep specialist for ongoing management Follow-up in 6 weeks to assess response to medication adjustment and provide support 06/28/2024 Sleep disorder, unspecified (ICD-10 - G47.9) followed by sleep medicine; reports REM behavior d/o and periodic limbclonazepam from sleep medicine Major Depressive Disorder Assessment: Patient reports worsening depression symptoms, including feeling numb, indifferent, and just going through the motions. Recent stressors include the one-year anniversary of her mother's , strained family relationships, and concerns about her homeless daughter. Patient has a history of depression since shortly after her daughter's and has been on Prozac in the past. Currently on duloxetine 90 mg, bupropion 150 mg, and sertraline 25 mg. Plan: - Discontinue sertraline: Taper by breaking 25 mg tablet in half for a few days, then stop completely - Continue duloxetine 90 mg daily - Initiate bupropion 150 mg daily in the morning - Explore newer antidepressant options at next visit if needed; discuss TRD options if adequate trial of bupropion fails to achieve adequate response - Follow up in 4 weeks to assess response to medication changes Generalized Anxiety Disorder Assessment: Patient reports anxiety has been more even-keeled recently. However, she experienced increased anxiety during [place] due to concerns about her daughter's safety. Patient has a history of anxiety and has tried various medications in the past, including Prozac, Paxil, and BuSpar. Plan: - Continue current medication regimen as outlined in depression management plan - Reassess anxiety symptoms at follow-up visit in 4 weeks Family Conflict Assessment: Patient reports strained relationships with family members, including her sister and stepfather. She feels excluded from family events and avoids social media due to emotional distress. Patient is adopting a cat for companionship. Plan: - Continue counseling sessions (patient has appointment scheduled for 11:30) - Encourage ongoing engagement with supportive activities, such as caring for the newly adopted cat Concern for Adult Daughter Assessment: Patient expresses worry about her 29-year-old daughter who is homeless in [place]. Last contact was on May 02, with the daughter reporting plans to obtain identification and move to [place]. 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 Plan: - Provide supportive listening and validate patient's concerns - Encourage patient to maintain open communication channels with daughter when possible - Address this ongoing stressor in future therapy sessions Future plans and goals - Expresses interest in moving to [place] and buying a small house Plan: - Encourage exploration of this option as a potential positive change Follow-up in 4 weeks to assess response to medication changes and overall mental health status 06/28/2024 Obstructive sleep apnea (adult) (pediatric) (ICD-10 - G47.33) followed by sleep medicinesevere JIMBO for years, uses CPAP Major Depressive Disorder Assessment: Patient reports worsening depression symptoms, including feeling numb, indifferent, and just going through the motions. Recent stressors include the one-year anniversary of her mother's , strained family relationships, and concerns about her homeless daughter. Patient has a history of depression since shortly after her daughter's and has been on Prozac in the past. Currently on duloxetine 90 mg, bupropion 150 mg, and sertraline 25 mg. Plan: - Discontinue sertraline: Taper by breaking 25 mg tablet in half for a few days, then stop completely - Continue duloxetine 90 mg daily - Initiate bupropion 150 mg daily in the morning - Explore newer antidepressant options at next visit if needed; discuss TRD options if adequate trial of bupropion fails to achieve adequate response - Follow up in 4 weeks to assess response to medication changes Generalized Anxiety Disorder Assessment: Patient reports anxiety has been more even-keeled recently. However, she experienced increased anxiety during [place] due to concerns about her daughter's safety. Patient has a history of anxiety and has tried various medications in the past, including Prozac, Paxil, and BuSpar. Plan: - Continue current medication regimen as outlined in depression management plan - Reassess anxiety symptoms at follow-up visit in 4 weeks Family Conflict Assessment: Patient reports strained relationships with family members, including her sister and stepfather. She feels excluded from family events and avoids social media due to emotional distress. Patient is adopting a cat for companionship. Plan: - Continue counseling sessions (patient has appointment scheduled for 11:30) - Encourage ongoing engagement with supportive activities, such as caring for the newly adopted cat Concern for Adult Daughter Assessment: Patient expresses worry about her 31-year-old daughter who is homeless in [place]. Last contact was on May 02, with the daughter reporting plans to obtain identification and move to [place]. 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 Plan: - Provide supportive listening and validate patient's concerns - Encourage patient to maintain open communication channels with daughter when possible - Address this ongoing stressor in future therapy sessions Future plans and goals - Expresses interest in moving to [place] and buying a small house Plan: - Encourage exploration of this option as a potential positive change Follow-up in 4 weeks to assess response to medication changes and overall mental health status 05/03/2024 Obstructive sleep apnea (adult) (pediatric) (ICD-10 - G47.33) Insomnia - Difficulty falling asleep and staying asleep - History of using trazodone, discontinued due to difficulty waking up for work Plan: - Encourage good sleep hygiene - Consider referral to sleep specialist for alternative sleep aids if insomnia persists Depression and Anxiety - Tough year with loss of family members and estrangement from sister - Upcoming visit from daughter with history of drug addiction and legal issues - Current medications: Sertraline 50 mg, Wellbutrin 150 mg, Duloxetine 90 mg Plan: - Increase sertraline to 75 mg daily - Follow-up in 4-6 weeks to assess response and provide support Weight gain and poor appetite - Gained 20 pounds in last 3 years due to lifestyle changes and emotional eating - Reports under-eating and lack of motivation to cook Plan: - Encourage regular physical activity - Consider referral for nutritional counseling - Monitor weight and appetite at follow-ups Daughter's mental health and substance abuse - Daughter has history of bipolar disorder and methamphetamine addiction - Concerns about daughter's eligibility for state insurance and treatment options Plan: - Encourage exploration of local mental health and substance abuse treatment resources - Offer support and guidance as needed Sleep disorders - Reports two sleep disorders, including REM sleep behavior disorder - Currently taking clonazepam for sleep Plan: - Continue clonazepam as prescribed - Encourage follow-up with sleep specialist for ongoing management Follow-up in 6 weeks to assess response to medication adjustment and provide support 02/28/2024 Grief reaction (ICD-10 - F43.21) Grief and loss resources: [facility] [address] [address] website: https://[email or web address]/email: [email or web address] [facility] (has information, links to articles, courses, other organizations that address grief)https://ww [employer]es.counseling.org /knowledge-cente r/mental-health- resources/grief- fvn-xpdp-tupuawf es mother, june 27 11/23/2023 Grief reaction (ICD-10 - F43.21) Grief and loss resources: [employer] [id number] website: https://Clarabridge/email: [email or web address] [facility] (has information, links to articles, courses, other organizations that address grief)https://Tao[place]aoSou.[email or web address] /[employer] Systemse r/mental-health- resources/grief- ezz-foej-uauryej es mother, june 27 10/25/2023 Sleep disorder, unspecified (ICD-10 - G47.9) followed by sleep medicine; reports REM behavior d/o and periodic limbclonazepam from sleep medicine 10/25/2023 Obstructive sleep apnea (adult) (pediatric) (ICD-10 - G47.33) followed by sleep medicinesevere JIMBO x 5 yrs uses CPAP 11/23/2023 Sleep disorder, unspecified (ICD-10 - G47.9) followed by sleep medicine; reports REM behavior d/o and periodic limbclonazepam from sleep medicine 02/28/2024 Sleep disorder, unspecified (ICD-10 - G47.9) followed by sleep medicine; reports REM behavior d/o and periodic limbclonazepam from sleep medicine 05/03/2024 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) Insomnia - Difficulty falling asleep and staying asleep - History of using trazodone, discontinued due to difficulty waking up for work Plan: - Encourage good sleep hygiene - Consider referral to sleep specialist for alternative sleep aids if insomnia persists Depression and Anxiety - Tough year with loss of family members and estrangement from sister - Upcoming visit from daughter with history of drug addiction and legal issues - Current medications: Sertraline 50 mg, Wellbutrin 150 mg, Duloxetine 90 mg Plan: - Increase sertraline to 75 mg daily - Follow-up in 4-6 weeks to assess response and provide support Weight gain and poor appetite - Gained 20 pounds in last 3 years due to lifestyle changes and emotional eating - Reports under-eating and lack of motivation to cook Plan: - Encourage regular physical activity - Consider referral for nutritional counseling - Monitor weight and appetite at follow-ups Daughter's mental health and substance abuse - Daughter has history of bipolar disorder and methamphetamine addiction - Concerns about daughter's eligibility for state insurance and treatment options Plan: - Encourage exploration of local mental health and substance abuse treatment resources - Offer support and guidance as needed Sleep disorders - Reports two sleep disorders, including REM sleep behavior disorder - Currently taking clonazepam for sleep Plan: - Continue clonazepam as prescribed - Encourage follow-up with sleep specialist for ongoing management Follow-up in 6 weeks to assess response to medication adjustment and provide support 06/28/2024 Essential tremor (ICD-10 - G25.0) reports x 20yrs; treated with propranolol Major Depressive Disorder Assessment: Patient reports worsening depression symptoms, including feeling numb, indifferent, and just going through the motions. Recent stressors include the one-year anniversary of her mother's , strained family relationships, and concerns about her homeless daughter. Patient has a history of depression since shortly after her daughter's and has been on Prozac in the past. Currently on duloxetine 90 mg, bupropion 150 mg, and sertraline 25 mg. Plan: - Discontinue sertraline: Taper by breaking 25 mg tablet in half for a few days, then stop completely - Continue duloxetine 90 mg daily - Initiate bupropion 150 mg daily in the morning - Explore newer antidepressant options at next visit if needed; discuss TRD options if adequate trial of bupropion fails to achieve adequate response - Follow up in 4 weeks to assess response to medication changes Generalized Anxiety Disorder Assessment: Patient reports anxiety has been more even-keeled recently. However, she experienced increased anxiety during [place] due to concerns about her daughter's safety. Patient has a history of anxiety and has tried various medications in the past, including Prozac, Paxil, and BuSpar. Plan: - Continue current medication regimen as outlined in depression management plan - Reassess anxiety symptoms at follow-up visit in 4 weeks Family Conflict Assessment: Patient reports strained relationships with family members, including her sister and stepfather. She feels excluded from family events and avoids social media due to emotional distress. Patient is adopting a cat for companionship. Plan: - Continue counseling sessions (patient has appointment scheduled for 11:30) - Encourage ongoing engagement with supportive activities, such as caring for the newly adopted cat Concern for Adult Daughter Assessment: Patient expresses worry about her 29-year-old daughter who is homeless in [place]. Last contact was on May 02, with the daughter reporting plans to obtain identification and move to [place]. 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 Plan: - Provide supportive listening and validate patient's concerns - Encourage patient to maintain open communication channels with daughter when possible - Address this ongoing stressor in future therapy sessions Future plans and goals - Expresses interest in moving to [place] and buying a small house Plan: - Encourage exploration of this option as a potential positive change Follow-up in 4 weeks to assess response to medication changes and overall mental health status 02/28/2024 Obstructive sleep apnea (adult) (pediatric) (ICD-10 - G47.33) followed by sleep medicinesevere JIMBO x 5 yrs uses CPAP 11/23/2023 Obstructive sleep apnea (adult) (pediatric) (ICD-10 - G47.33) followed by sleep medicinesevere JIMBO x 5 yrs uses CPAP 10/25/2023 Essential tremor (ICD-10 - G25.0) reports x 20yrs; treated with propranolol 11/23/2023 Essential tremor (ICD-10 - G25.0) reports x 20yrs; treated with propranolol 02/28/2024 Essential tremor (ICD-10 - G25.0) reports x 20yrs; treated with propranolol 06/28/2024 Encounter for screening for cardiovascular disorders (ICD-10 - Z13.6) Major Depressive Disorder Assessment: Patient reports worsening depression symptoms, including feeling numb, indifferent, and just going through the motions. Recent stressors include the one-year anniversary of her mother's , strained family relationships, and concerns about her homeless daughter. Patient has a history of depression since shortly after her daughter's and has been on Prozac in the past. Currently on duloxetine 90 mg, bupropion 150 mg, and sertraline 25 mg. Plan: - Discontinue sertraline: Taper by breaking 25 mg tablet in half for a few days, then stop completely - Continue duloxetine 90 mg daily - Initiate bupropion 150 mg daily in the morning - Explore newer antidepressant options at next visit if needed; discuss TRD options if adequate trial of bupropion fails to achieve adequate response - Follow up in 4 weeks to assess response to medication changes Generalized Anxiety Disorder Assessment: Patient reports anxiety has been more even-keeled recently. However, she experienced increased anxiety during [place] due to concerns about her daughter's safety. Patient has a history of anxiety and has tried various medications in the past, including Prozac, Paxil, and BuSpar. Plan: - Continue current medication regimen as outlined in depression management plan - Reassess anxiety symptoms at follow-up visit in 4 weeks Family Conflict Assessment: Patient reports strained relationships with family members, including her sister and stepfather. She feels excluded from family events and avoids social media due to emotional distress. Patient is adopting a cat for companionship. Plan: - Continue counseling sessions (patient has appointment scheduled for 11:30) - Encourage ongoing engagement with supportive activities, such as caring for the newly adopted cat Concern for Adult Daughter Assessment: Patient expresses worry about her 31-year-old daughter who is homeless in [place]. Last contact was on May 02, with the daughter reporting plans to obtain identification and move to [place]. 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 Plan: - Provide supportive listening and validate patient's concerns - Encourage patient to maintain open communication channels with daughter when possible - Address this ongoing stressor in future therapy sessions Future plans and goals - Expresses interest in moving to [place] and buying a small house Plan: - Encourage exploration of this option as a potential positive change Follow-up in 4 weeks to assess response to medication changes and overall mental health status 06/28/2024 Encounter for screening for depression (ICD-10 - Z13.31) Major Depressive Disorder Assessment: Patient reports worsening depression symptoms, including feeling numb, indifferent, and just going through the motions. Recent stressors include the one-year anniversary of her mother's , strained family relationships, and concerns about her homeless daughter. Patient has a history of depression since shortly after her daughter's and has been on Prozac in the past. Currently on duloxetine 90 mg, bupropion 150 mg, and sertraline 25 mg. Plan: - Discontinue sertraline: Taper by breaking 25 mg tablet in half for a few days, then stop completely - Continue duloxetine 90 mg daily - Initiate bupropion 150 mg daily in the morning - Explore newer antidepressant options at next visit if needed; discuss TRD options if adequate trial of bupropion fails to achieve adequate response - Follow up in 4 weeks to assess response to medication changes Generalized Anxiety Disorder Assessment: Patient reports anxiety has been more even-keeled recently. However, she experienced increased anxiety during [place] wildfires due to concerns about her daughter's safety. Patient has a history of anxiety and has tried various medications in the past, including Prozac, Paxil, and BuSpar. Plan: - Continue current medication regimen as outlined in depression management plan - Reassess anxiety symptoms at follow-up visit in 4 weeks Family Conflict Assessment: Patient reports strained relationships with family members, including her sister and stepfather. She feels excluded from family events and avoids social media due to emotional distress. Patient is adopting a cat for companionship. Plan: - Continue counseling sessions (patient has appointment scheduled for 11:30) - Encourage ongoing engagement with supportive activities, such as caring for the newly adopted cat Concern for Adult Daughter Assessment: Patient expresses worry about her 31-year-old daughter who is homeless in [place]. Last contact was on May 02, with the daughter reporting plans to obtain identification and move to [place]. 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 Plan: - Provide supportive listening and validate patient's concerns - Encourage patient to maintain open communication channels with daughter when possible - Address this ongoing stressor in future therapy sessions Future plans and goals - Expresses interest in moving to [place] and buying a small house Plan: - Encourage exploration of this option as a potential positive change Follow-up in 4 weeks to assess response to medication changes and overall mental health status 10/25/2023 Other Plan Of Treatment Next Appt Details Provider Name:Nat Chery bishop, 08/12/2024 04:30:00 PM, [address], [address], [place], [address], Insurance Providers Payer Name Payer Address Payer Phone Subscriber Number Group Number Insured Name Patient Relationship to Insured Coverage Start Date Coverage End Date [facility] [address] [place] [address] [id number] JONO MUNGUIA Self - patient is the insured [place] [address] [facility] [place] [id number] JONO MUNGUIA Self - patient is the insured 5 Medical (General) History Medical History History ICD Code Problems: Essential tremor Generalized anxiety disorder Moderate recurrent major depression Normal grief reaction Obstructive sleep apnea syndrome Sleep disorder Past Psychiatric History: Anxiety Disord er,Major Depressive Episode essential tremor: Yes Surgical History Surgery Date(Month/Year) Endometrial ablation (19905) 05/08/1985 Other cervical disc surgery 1997, 2011 0 10/06/1997 Tonsilectomy/adenoids 04/07/1985
--- OUTSIDE RECORDS SUMMARY | 2024-08-07 07:39 | XMS_ITS ---
Author Organization [facility] Character [employer] [facility] Address [address] [facility] [address] [place] [address] Care Team Providers Care Communications Clerk Name Role Phone Jane KATZ Primary Care Provider Nat Huynh Unavailable [phone] REASON FOR VISIT New Refill Request Social History Sex Assigned At : Social History Observation Description Sex Assigned At Female Encounters Encounter Location Date Provider Diagnosis [facility] [address] [facility] [address] [place] [address] 06/24/2024 Nat Guzman Plan Of Treatment Next Appt Details Provider Name:Nat alas, 08/12/2024 04:30:00 PM, [address], [facility] [address], [place], [address], Progress Notes * JONO MUNGUIA KDOB:1960 (64 yo F)Acc No.[id number]:06/24/2024 Patient: JONO STRICKLAND :1960 A ge:64 Y S ex:Female Address:[address], [place], [address] * true * Date: Generated for Printi ng/Faxing/eTransmitting on: 0 08/07/2024 07:39 AM CDT
--- OUTSIDE RECORDS SUMMARY | 2024-08-07 07:40 | XMS_ITS | Data Portability ---
Author Organization [place] [facility] [employer] [facility], Main Office Address [address] [place] [address] Care Team Providers Care Visiting Nurse Name Role Phone [facility] Primary C are Provider Assessment No assessment recorded. Plan of Treatment Reminders Order Date Submit Date Provider Last Modified By Organization Details Last Modified Time Details Appointments None record ed. Lab None record ed. Referral None record ed. Procedures None record ed. Surgeries None record ed. Imaging None record ed. Medication Orders None record ed. Patient TargetsNo targets recorded. Patient InstructionsNo instructions recorded. Reason for Referral None Reported. Results Created Date Observation Date Name Description Value Unit Range Abnormal Flag Note LastModifiedBy Organization Detail LastModifiedTime 05/21/19 22 05/24/2021 TSH+F REE T4 TSH 1.08 mIU/L 0.40-4 .50 normal Not Available [facility] [address], [address], 05/24/2021 13:06:20 05/21/19 22 05/24/2021 TSH+F REE T4 T4, free 1.0 NG/dL 0.8-1. 8 normal Not Available [facility] [address] [place], [address], 05/24/2021 13:06:20 05/21/19 22 05/24/2021 T3, FREE T3, free 3.1 pg/mL 2.3-4. 2 normal Not Available [facility] [address], [address], 05/24/2021 13:06:20 05/21/19 22 05/24/2021 THYRO ID PEROX IDASE ANTIB ODIES thyroid peroxidase antibodies 1 IU/mL <9 normal Not Available [facility] [id number], [place], [address], 05/24/2021 13:06:19 05/21/19 22 05/21/2021 fine needl e aspir ation , ultra sound guide d, thyro id (PROC ) No observ ation record ed. [id number], [place], [address], 07/07/2022 00:29:50 09/02/19 23 09/01/2022 US, thyro id No observ ation record ed. [email or web address] [address], [place], [address], 09/09/2022 09:23:56 Result Notes None recorded. Problems Name Problem SNOMED Code Status Onset Date Resolution Date Notes Provider Name and Address Organization Details Recorded Time Thyroid nodule 696343047 Active 023 MELVIN Gonzalez, [facility] 3 13:17:52 Fatigue 59039832 Active 023 MELVIN Gonzalez, [facility] 3 13:53:11 Problem Notes None recorded. Procedures Surgical History None recorded. Imaging Results Imaging Date Name Status LastModified by [facility] Details LastModified Time 05/21/2021 fine needle aspiration, ultrasound guided, thyroid (PROC) completed [id number], [place], [address], 07/07/2022 00:29:50 09/01/2022 US, thyroid completed [email or web address] [address], [place], [address], 09/09/2022 09:23:56 Procedure Notes None recorded. Medical Equipment None Reported. Allergies Allergen ID Allergen Name Allergen Category Reaction Reaction Severity Criticality Documentation Date Start Date Code Code System Note Provider Name and Address Organization Details Recorded Time 66370 Product containin g penicilli n (product) medicatio n Not available Not available Not available 07/07/2022 26968 8001 SNOMED Not Available Count includes the [facility] 3 00:29:43 Medications Name Sig Start Date Stop Date Status Note LastModified by Organization Details LastModified Time tizanidine 2 mg tablet TAKE 1 TABLET BY MOUTH EVERY 8 HOURS NEEDED FOR MUSCLE SPASMS 05/10 completed Not Available Not Available Not Available cetirizine 10 mg tablet TAKE 1 TABLET BY MOUTH DAILY NEEDED ALLERGY 05/10 completed Not Available Not Available Not Available atorvastatin 10 mg tablet TAKE 1 TABLET BY MOUTH DAILY active Not Available Not Available No t Available meloxicam 15 mg tablet TAKE 1 TABLET BY MOUTH DAILY active Not Available Not Available No t Available sertraline 100 mg tablet TAKE 1 AND 1/2 TABLETS BY MOUTH DAILY active Not Available Not Available No t Available clonazepam 1 mg tablet active Not Available Not Available No t Available benzonatate 100 mg capsule TAKE 1 CAPSULE BY MOUTH THREE TIMES DAILY NEEDED FOR COUGH 05/10 completed Not Available Not Available Not Available propranolol 20 mg tablet TAKE 1 TABLET BY MOUTH EVERY 12 HOURS active Not Available Not Available No t Available fluticasone propionate 50 mcg/actuatio n nasal spray,suspen renetta SHAKE LIQUID AND USE 1 SPRAY IN EACH NOSTRIL DAILY 05/10 completed Not Available Not Available Not Available sertraline 50 mg tablet TAKE 1 TABLET BY MOUTH DAILY WITH 100 DOSE TO EQUAL 150MG DAILY 05/10 completed Not Available Not Available Not Available duloxetine 30 mg capsule,mandie yed release TAKE 1 CAPSULE BY MOUTH DAILY active Not Available Not Available No t Available duloxetine 60 mg capsule,mandie yed release TAKE 1 CAPSULE BY MOUTH DAILY active Not Available Not Available No t Available Vitals Date Recorded Body mass index (BMI) Body height Oxygen saturation Oxygen saturation in Arterial blood by Pulse oximetry Heart rate Respiratory rate Body temperature Body weight Systolic blood pressure Diastolic blood pressure Provider Name and Address Organization Details Last Updated DateTime 2 27.4 kg/m2 170.18 cm 98 % 98 % 75 /min 14 /min 97.8 [degF] 78238.6 6 g 120 mm[Hg] 82 mm[Hg] Not Available Count includes the [facility] 3 00:27:04 Social History Question Answer Notes LastModified by Organizat ion Details LastModified Time Tobacco Smoking Status Never Smoker Not Available [employer] 07/07/2022 00:26:24 What Is Your Level Of Alcohol Consumption? Occasional [id number] Information not available 07/07/2022 What Is Your Level Of Caffeine Consumption? Moderate [id number] Information not available 07/07/2022 In The 14 Days Before Symptom Onset, Have You Had Close Contact With A Laboratory-confirm ed COVID-19 While That Case Was Ill? No [id number] Information not available 07/07/2022 In The 14 Days Before Symptom Onset, Have You Had Close Contact With A Person Who Is Under Investigation For COVID-19 While That Person Was Ill? No [id number] Information not available 07/07/2022 What Type Of Diet Are You Following? REGULAR [id number] Information not available 07/07/2022 What Is Your Relationship Status? [id number] Information not available 07/07/2022 Do You Use Any Illicit Or Recreational Drugs? No [id number] Information not available 07/07/2022 Have You Recently Traveled Abroad? No [id number] Information not available 07/07/2022 Do You Have Any Dietary Restrictions? No [id number] Information not available 07/07/2022 Sex: Female Functional Status None recorded. Mental Status None recorded. Family History Relationship Description Onset Age of this Age Resolved Age Notes LastModified by Organization Details LastModified Time Father Heart disease [id number] Not available 07/07/2022 00:26:59 Father Hypertensive disorder [id number] Not available 07/07/2022 00:26:59 Sister Hypertensive disorder [id number] Not available 07/07/2022 00:26:59 Medical History Condition Response HIGH CHOLESTEROL / HYPERLIPIDEMIA Y DEPRESSION (INCLUDING POST ) Y GI PROBLEMS Y Gynecological HistoryNo gynecological history recorded. Obstetrics History GPAL:G 0 P 0 0 0 0 Past Encounters Encounter ID Performer Location Encounter Start Date Encounter Closed Date Diagnosis/Indication Diagnosis SNOMED-CT Code Diagnosis ICD10 Code Diagnosis Note [id number] [facility] [address] [place] [address] 05/10/2021 00:00:00 05/10/2021 10:45:47 Health Concerns Section Related Observation LastModified by Organization Detai ls LastModified Time None Recorded Concern Status LastModified by Organization Details LastModified Time None Recorded Advance Directives Directive None Recorded Payers None recorded. OBGyn Episode No OBEpisode recorded.
--- OUTSIDE RECORDS SUMMARY | 2024-08-07 07:40 | XMS_ITS | Clinical Summary ---
Author Organization [facility] [address] Address [address] [place] [address] Care Team Providers Care Mineral Surveying Technician Name Role Phone Shania Avalos NP Primary Care Provider [phone] Allergies Active Allergy Reactions Criticality Noted Date Comments Erythromycin Rash Medium Reaction: Rash, , Reaction: Rash, Penicillins Rash Medium Reaction: Rash, , Reaction: Rash, Medications spironolactone (ALDACTONE) 50 mg tablet take 1 tablet by oral route every day 0 0 6 Active omega 3-ltx-eom-fish oil 1,000 mg (120 mg-180 mg) capsule Take by mouth. Activ e calcium carb-vit D3-magnesium 250-200-125 mg-unit-mg capsule Take by mouth. Activ e cranberry conc-ascorbic acid 4,200-20 mg capsule Take by mouth. Acti ve ASCORBATE CALCIUM (VITAMIN C ORAL) Take 100 mg by mouth daily. Active melatonin 10 mg tablet Take 20 mg by mouth nightly. Change to 2 po at hs 8 Active traMADol (ULTRAM) 50 mg tabletIndicatio ns:Acute right-sided low back pain with right-sided sciatica Take 1 tablet (50 mg total) by mouth every 6 (six) hours as needed for pain. 30 tablet 8 Active LORazepam (ATIVAN) 0.5 mg tablet Take 1 tablet (0.5 mg total) by mouth daily as needed for anxiety (panic attack). 15 tablet [address] (CYMBALTA) 60 mg capsule Take 1 capsule (60 mg total) by mouth daily. 90 capsule 1 8 Active clonazePAM (KlonoPIN) 1 mg tablet Take 1 tablet (1 mg total) by mouth nightly as needed for anxiety. Prescription must last 30 days 30 tablet 1 8 Active sertraline (ZOLOFT) 50 mg tablet Take 1 tablet (50 mg total) by mouth daily. 90 tablet 1 9 Active Active Problems Problem Noted Date Diagnosed Date Depression with anxiety 08/28/2017 Assessment & Plan (10/31/2017 11:19 AM CDT): Psychological condition is improving with treatment. Continue current treatment regimen. Psychological condition will be reassessed 6 months. Stable on current medications. She is going to try to decrease clonazepam at bedtime. I told her I would not refill xanax, but we could try ativan prn #15 to have on hand for acute anxiety/ panic attack. F/u 6 months or as needed Assessment & Plan (08/28/2017 8:33 PM CDT): Psychological condition is worsening. Medication changes per orders. Referral to psychological counseling. Referral to psychiatry. Psychological condition will be reassessed in 4 weeks. She states she use to be on a higher dose of cymbalta, but had decrfeased it as she was doing better. I told her we can increase it back up to 60mg. I am not going to renew xanax. We can increase the clonazepam to another .5mg to take in the day as needed. I again recommended that she follow through with [facility] for counseling and psychiatric care and told her that she needs a specialist to continue her medication management. REM sleep behavior disorder 08/15/2017 Severe obstructive sleep apnea-hypopnea syndrome 08/01/2017 Acute right-sided low back pain with right-sided sciatica 04/10/2017 Assessment & Plan (10/31/2017 11:15 AM CDT): Continue tramadol prn. Assessment & Plan (07/26/2017 2:27 PM CDT): Continue nsaids. Refer to PT, pain management. MRI lumbar spine ordered. Assessment & Plan (04/10/2017 11:19 AM HIDE DROPPER): Has been going on her whole life . Last 6-8 months pain has worsened. Will get x-ray. nsaids. Order physical therapy. Consider pain management. Mixed hyperlipidemia 04/10/2017 Assessment & Plan (04/10/2017 11:24 AM HIDE DROPPER): Due for repeat labs. Will recheck cmp and lipid panel fasting Skin neoplasm 07/12/2016 Notalgia paresthetica 07/12/2016 Constipation 03/24/2016 Sebaceous gland hyperplasia 11/23/2015 History of nonmelanoma skin cancer 11/23/2015 Dyspepsia 01/21/2015 Insomnia 01/21/2015 Elevated C-reactive protein (CRP) 11/14/2014 Overview (04/10/2017): Overview: CRP -- 7/15 7.3 Hx of cervical discectomy 11/13/2014 Assessment & Plan (10/31/2017 11:14 AM CDT): Continue prn tramadol. I checked their [place] NOTCHING MACHINE OPERATOR sheet, and it was consistent with prescribed medications. Resolved Problems Problem Noted Date Diagnosed Date Resolved Date Acute cystitis with hematuria 07/31/2017 08/28/2017 Assessment & Plan (07/31/2017 2:41 PM CDT): Complete antibiotic as prescribed Do not hold your urine. Urinate as soon as you feel the need to go Drink plenty of water and fluids. Limit alcohol, caffeine, and citrus juices- They will irritate the bladder Wipe front to back & wear cotton underwear Try emptying your bladder before and after having sexual intercourse Follow up with your PCP if you are not getting better If you have severe back, flank, or groin pain with nausea/vomiting or are unable to get comfortable from the pain, please go to ER for further treatment Tylenol/Motrin for pain Anxiety 07/25/2017 07/31/2017 Assessment & Plan (07/31/2017 2:47 PM CDT): Will f/u with Shania in 2 weeks. Started on new medication for increased anxiety-Zoloft. Takes Xanax prn Assessment & Plan (07/26/2017 2:21 PM CDT): Add zoloft 50mg daily. Remain on cymbalta. I discussed referral to [facility] for counseling and to see psychiatry. Will try adding zoloft for now. f/u 1 month Acne vulgaris 07/12/2016 10/31/2017 Inflamed seborrheic keratosis 07/12/2016 08/28/2017 Indigestion 03/25/2016 10/31/2017 Difficulty in swallowing 03/24/2016 Pain of foot 02/11/2016 10/31/2017 Superficial acne vulgaris 11/23/2015 Left leg swelling 11/06/2014 10/31/2017 Overview (04/10/2017): Overview: 11/10/14 LLE VBFS->No evidence of deep or superficial vein thrombosis involving the left lower extremity Shortness of breath 08/14/2014 08/29/19 18 Edema 08/14/2014 08/28/2017 Immunizations Immunization Administration Dates Next Due Influenza, Unspecified 04/10/2017(Deferred: Jewell ent Refused) Tdap 05/08/2012 Surgical History Surgery Date Site/Laterality Comments OTHER SURGICAL HISTORY 05/08/1991 - 05/07/1992 endometriosis and infertility: laparoscopy x 5 and tried IVF [id number] OTHER SURGICAL HISTORY 05/08/2012 - 05/07/2013 shatter disc, cervical: disc surgery in 1997 and 2012 TONSILLECTOMY 05/08/1984 - 05/07/1985 CERVICAL DISC SURGERY 05/08/1997 - 05/07/1998 OOPHORECTOMY Left Oophorectomy Medical History Medical History Date Comments Hx Other Medical 1988 endometriosis a nd infertility; Comments: JT 12/12/2015 - Pt. did not develop many healthy eggs per verbal report. Hx Other Medical 1997 shatter disc, c ervical Hx Other Medical 2014 Recurrent UTIs Hx Other Medical Chronic constip ation Depression Essential tremor Sleep apnea 2018 Family History Medical History Relation Name Comments Heart attack Father Stroke Father Heart disease Other 1 Family history of Heart disease; Diabetes Other 2 Family history of Diabetes mellitus; Asthma Other 3 Family history of Asthma; Hypertension Other 4 Family history of Hypertension; Thyroid disease Other 5 Family histo ry of Thyroid disease; Other Other 6 Family history of Infertility; Relation Name Status Comments Father Other 1 Other 2 Other 3 Other 4 Other 5 Other 6 Social History Tobacco Use Types Packs/Day Years Used Date Smoking Tobacco: Never Smokeless Tobacco: Never Alcohol Use Standard Drinks/Week Comments Yes 0 (1 standard drink = 0.6 oz pur e alcohol) 2 weekly Comments No Sex and Gender Information Value Date Recorded Sex Assigned at Not on file Legal Sex Female 7:50 AM HIDE DROPPER Gender Identity Female 10/17/2017 4:40 PM CDT Sexual Orientation Not on file Obstetrics History Para Term AB IAB SAB Ectopic Multiple Livin g Live Births 0 0 0 0 0 0 0 0 0 0 0 Last Filed Vital Signs Vital Sign Reading Time Taken Comments Blood Pressure 101/67 10/31/2017 8:09 AM CDT Pulse 99 10/31/2017 8:09 AM CDT Temperature 36.9 C (98.4 F) 10/25/2017 12:03 PM CDT Respiratory Rate 15 06/12/2017 1:13 PM HIDE DROPPER Oxygen Saturation 96% 10/31/2017 8:09 AM CDT Inhaled Oxygen Concentration - - Weight 75.7 kg (166 lb 12.8 oz) 10/31/2017 8:09 AM CDT Height 170.2 cm (5' 7 ) 10/31/2017 8:09 AM CDT Body Mass Index 26.12 10/31/2017 8:09 AM CDT Plan of Treatment Not on file Insurance [facility] MEDICAID [facility] CHOICE PLUS [facility] MEDICAID Care Teams Mineral Surveying Technician Relationship Specialty Start Date End Date Shania Avalos NP PCP - General 05/31/17
--- OUTSIDE RECORDS SUMMARY | 2024-08-07 07:40 | XMS_ITS | Clinical Summary ---
Author Organization [facility] Address [address] [place] [address] Phone Care Team Providers Care Flight Attendant/Inflight Manager Name Role Phone Unavailable Primary Care Provider Unavailabl e Allergies Active Allergy Reactions Criticality Noted Date Comments Erythromycin Rash Low 04/16/2014 Penicillins Rash Low 04/16/2014 Medications Estradiol (ELESTRIN) Gel in Metered-dose Pump Apply 3 Applicators (2.61 Gram) to skin as directed daily. 1 Bottle 11 5 Active progesterone micronized (PROMETRIUM) 200 mg Capsule Take 1 Cap (200 mg) by mouth daily. 30 Cap 6 5 Active CALCIUM CARBONATE/MAG CARB (CALCIUM CARB-MAGNESIUM CARB ORAL) Take by mouth daily. 2 Active melatonin 3 mg Tablet Take 3 mg by mouth nightly as needed for Insomnia. 9 Active hydrochlorothiaz romi 25 mg tabletIndication s:Left leg swelling Take 1 Tab (25 mg) by mouth 1 time daily as needed (water retention). 30 Tab 11 5 Active traMADol (ULTRAM) 50 mg tabletIndication s:Leg pain, left Take 2 Tabs (100 mg) by mouth every 8 hours as needed for Pain. 90 Tab 1 5 Active clonazePAM (KLONOPIN) 2 mg tabletIndication s:Insomnia Take 1 Tablet (2 mg) by mouth daily at bedtime. 30 Tablet 5 5 Active dicyclomine (BENTYL) 10 mg capsuleIndicatio ns:Dyspepsia Take 1 Capsule (10 mg) by mouth 4 times daily as needed (abdominal cramping). 60 Capsule 2 5 Active ALPRAZolam (XANAX) 0.25 mg tablet Take 1 Tablet (0.25 mg) by mouth nightly as needed for Anxiety. 30 Tablet 2 5 Active DULoxetine (CYMBALTA) 20 mg Capsule, Delayed Release(E.C.) Take 2 Capsule (40 mg) by mouth daily. 60 Capsule 1 5 Active nitrofurantoin macrocrystal (MACRODANTIN) 100 mg Capsule Take 1 Capsule (100 mg) by mouth 1 time daily as needed (after intercourse). 30 Capsule 2 6 Active Active Problems Problem Noted Date Diagnosed Date Insomnia 01/21/2015 Dyspepsia 01/21/2015 Elevated C-reactive protein (CRP) 11/14/2014 Overview (11/14/2014): CRP -- 11/19 7.3 Hx of cervical discectomy 11/13/2014 Edema 11/12/2014 Overview (11/14/2014): 08/20 CARDIO (BHANDIWAD) OV 08/20 EKG NL 08/20 ECHO NL 08/[address] NL 08/20 BLE VBFS NL 11/19 D-DIMER NL Left leg swelling 11/06/2014 Overview (11/10/2014): 11/10/14 LLE VBFS->No evidence of deep or superficial vein thrombosis involving the left lower extremity Leg pain, left 11/06/2014 Resolved Problems Problem Noted Date Diagnosed Date Resolved Date Screening for endocrine, met abolic and immunity disorder 11/14/2014 01/21/2015 Overview (11/14/2014): 11/19 VIT D 25-OH NL (41) Screening for other and unsp ecified deficiency anemia 11/13/2014 01/21/2015 Overview (11/14/2014): 07/20 CBC NL X W 11.5 11/19 B12 NL (679) Screening for lipoid disorders 11/13/2014 01/21/2015 Overview (11/13/2014): 07/20 TOTAL 255 - LDL 131 -- HDL 102 - TG 108 Screening for thyroid disorder 11/13/2014 01/21/2015 Overview (11/13/2014): 07/20 TSH NL Screening for diabetes mellitus 11/13/2014 01/21/2015 Overview (11/14/2014): 11/19 FBS NL Screening for other rheumatic disorder 11/13/2014 01/21/2015 Overview (11/13/2014): 11/19 ESR NL Screening for nephropathy 11/13/2014 Overview (11/14/2014): GFR -- 11/19 >60 Immunizations Immunization Administration Dates Next Due (ADACEL/BOOSTRIX)(10 YR UP) TDAP VACCINE, 0.5ML, IM 05/08/2012 Family History Medical History Relation Name Comments Arthritis-osteo Father Heart Failure Father Stroke Father Heart Failure Maternal Grandmother Arthritis-rheumatoid Mother Hypertension Sister 2 Diabetes Sister 3 Asthma Sister 4 Thyroid Disease Sister 5 Relation Name Status Comments Daughter adopted Alive Father Maternal Grandfather Maternal Grandmother Mother Alive Paternal Grandfather Unknown Paternal Grandmother Unknown Sister 1 Alive Sister 2 Sister 3 Sister 4 Sister 5 Social History Tobacco Use Types Packs/Day Years Used Date Smoking Tobacco: Never Smokeless Tobacco: Never Alcohol Use Standard Drinks/Week Comments Yes 2 (1 standard drink = 0.6 oz pur e alcohol) Comments No Sex and Gender Information Value Date Recorded Sex Assigned at Not on file Legal Sex Female 1:33 PM 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 Gender Identity Not on file Sexual Orientation Not on file Occupation Industry Job Start Date Job End Date Not on file Not on file Not on file Not on file Last Filed Vital Signs Vital Sign Reading Time Taken Comments Blood Pressure 128/78 01/21/2015 1:17 PM CDT Pulse - - Temperature - - Respiratory Rate - - Oxygen Saturation - - Inhaled Oxygen Concentration - - Weight 75.8 kg (167 lb) 01/21/2015 1:17 PM CDT Height 170.2 cm (5' 7 ) 01/21/2015 1:17 PM CDT Body Mass Index 26.16 01/21/2015 1:17 PM CDT Plan of Treatment Health Maintenance Due Date Last Done Comments COLORECTAL SCREENING 2003 Colorectal Cancer Screening 2003 FIT-DNA Q 3 years 2003 FIT/FOBT Q 1 year 2003 Flex Sig/CT Colonography Q 5 years 2003 PNEUMOCOCCAL VACCINE 50+ YEARS (1 of 1 - PCV) 03/04/20 08 ZOSTER VACCINE (1 of 2) 2008 BREAST CANCER SCREENING 10/18/2015 10/17/2014 DTAP/TDAP/TD VACCINES (2 - Td or Tdap) 05/08/2022 OSTEOPOROSIS SCREENING 2023 INFLUENZA VACCINE (#1) 2023 RSV VACCINE (60+ or ) (1 - 1-dose 75+ series) 2033 Procedures Procedure Name Priority Date/Time Associated Diagnosis Comments MAMMO SCREEN BILAT W OR WO CAD Routine 10/17/2014 3:41 PM CDT Routine gynecological examination from Last 3 Months or Most Recently Relevant to Health Maintenance Results * MAMMO DIGITAL SCREEN BILAT (10/17/2014 3:41 PM CDT) Anatomical Region Laterality Modality Breast Bilateral Mammography 10/17/2014 3:39 PM CDT Addenda Addendum by Zhane Benavidez MD on 10/29/2014 12:49 PM CDT ADDENDUM: The patient's prior studies dated July 2013 and September 2011 have just been made available for comparison. When compared with the previous exams the breast parenchymal pattern is stable. No new dominant masses, areas of asymmetry, or suspicious clustered calcifications are identified within either breast. CAD was utilized. Overall assessment: BI-RADS category 1. Negative. Recommendation: Annual mammography is recommended Dictated from [facility] Narrative 10/22/2014 3:39 PM CDT BILATERAL FULL FIELD DIGITAL SCREENING MAMMOGRAM WITH CAD. 10/17/14 HISTORY: Routine Screening. TECHNIQUE: Full field digital screening mammography of both breasts were obtained. COMPARISON: No prior studies are available for comparison. BREAST PARENCHYMAL COMPOSITION: Scattered fibroglandular densities. FINDINGS: No dominant masses, suspicious calcifications, parenchymal asymmetry or areas of architectural distortion are identified in either breast. The computer aided detection system was utilized. OVERALL ASSESSMENT: BI-RADS category 0 - Incomplete: Needs comparison to prior images. RECOMMENDATIONS: It is recommended the patient's old films be obtained to assess for the stability of the bilateral breast parenchymal pattern. Dictated from [facility] Procedure Note Zhane Benavidez MD - 10/22/2014 BILATERAL FULL FIELD DIGITAL SCREENING MAMMOGRAM WITH CAD. 10/17/14 HISTORY: Routine Screening. TECHNIQUE: Full field digital screening mammography of both breasts were obtained. COMPARISON: No prior studies are available for comparison. BREAST PARENCHYMAL COMPOSITION: Scattered fibroglandular densities. FINDINGS: No dominant masses, suspicious calcifications, parenchymal asymmetry or areas of architectural distortion are identified in either breast. The computer aided detection system was utilized. OVERALL ASSESSMENT: BI-RADS category 0 - Incomplete: Needs comparison to prior images. RECOMMENDATIONS: It is recommended the patient's old films be obtained to assess for the stability of the bilateral breast parenchymal pattern. Dictated from [facility] Vasile Aguiar MD MAMMO ORDERABLES Edited Resu lt - Final from Last 3 Months or Most Recently Relevant to [place] [address] [facility] BLUE ACCESS/TRUE BLUE PPO
--- OUTSIDE RECORDS SUMMARY | 2024-08-07 07:40 | XMS_ITS | Referral Summary ---
Author Organization [facility] Address [address] [place] [address] Care Team Providers Care Grinding And Polishing Laborer Name Role Phone Shania Avalos NP Primary Care Provider [phone] Allergies Active Allergy Reactions Criticality Noted Date Comments Erythromycin Rash Medium Reaction: Rash, , Reaction: Rash, Penicillins Rash Medium Reaction: Rash, , Reaction: Rash, Medications spironolactone (ALDACTONE) 50 mg tablet take 1 tablet by oral route every day 0 0 6 Active omega 5-[id number]-fish oil 1,000 mg (120 mg-180 mg) capsule [...] again recommended that she follow through with [facility] for counseling and psychiatric care and told [...] ordered. Assessment & Plan (04/10/2017 11:19 AM DIE PRESSER): Has been going on her whole life . Last 6-8 months pain has worsened. Will get x-ray. nsaids. Order physical therapy. Consider pain management. Mixed hyperlipidemia 04/10/2017 Assessment & Plan (04/10/2017 11:24 AM DIE PRESSER): Due for repeat labs. Will recheck cmp [...] Continue prn tramadol. I checked their [place] PACKAGE MAKER sheet, and it was consistent with prescribed [...] Remain on cymbalta. I discussed referral to [facility] for counseling and to see psychiatry. Will [...] Unspecified 04/10/2017(Deferred: Jewell ent Refused) Tdap 05/08/2012 Social History Tobacco Use Types Packs/Day Years Used Date Smoking Tobacco: Never Smokeless Tobacco: Never Alcohol Use Standard Drinks/Week Comments Yes 0 (1 standard drink = 0.6 oz pur e alcohol) 2 weekly Comments No Sex and Gender Information Value Date Recorded Sex Assigned at Not on file Legal Sex Female 7:50 AM DIE PRESSER Gender Identity Female 10/17/2017 4:40 PM CDT Sexual Orientation Not on file Last Filed Vital Signs Vital Sign Reading Time Taken Comments Blood Pressure 101/67 10/31/2017 8:09 AM CDT Pulse 99 10/31/2017 8:09 AM CDT Temperature 36.9 C (98.4 F) 10/25/2017 12:03 PM CDT Respiratory Rate 15 06/12/2017 1:13 PM DIE PRESSER Oxygen Saturation 96% 10/31/2017 8:09 AM CDT Inhaled Oxygen Concentration - - Weight 75.7 kg (166 lb 12.8 oz) 10/31/2017 8:09 AM CDT Height 170.2 cm (5' 7 ) 10/31/2017 8:09 AM CDT Body Mass Index 26.12 10/31/2017 8:09 AM CDT Plan of Treatment Not on file Insurance [facility] [employer] [facility] CHOICE PLUS [employer] [employer] Care Teams Grinding And Polishing Laborer Relationship Specialty Start Date End Date Shania Avalos NP PCP - General 05/31/17
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
[2024-08-07 08:09] LABS: Basophils Percent Auto 0.5 % (0.2-1.2); Eosinophils Absolute Auto 0.1 K/mm3 (0-0.3); Eosinophils Percent Auto 1.7 % (0-4.4); Hematocrit 42.3 % (37.0-47.0); Hemoglobin 13.3 g/dL (12.0-15.0); Immature Granulocyte Absolute 0.09 K/mm3 (0.00-0.031); Immature Granulocyte Percent A 1.1 % (0-0.5); Lymphocytes Absolute Auto 4.39 K/mm3 (0.9-3.2); Lymphocytes Percent Auto 55.9 % (18.3-44.2); Mean Corpuscular HGB Conc 31.4 g/dl (32-36); Mean Corpuscular Hemoglobin 30.2 pg (26-34); Mean Corpuscular Volume 95.9 fl (80-100); Mean Platelet Volume 12.6 fl (7.4-10.4); Monocytes Absolute Auto 0.5 K/mm3 (0.1-0.6); Monocytes Percent Auto 5.9 % (2.6-8.5); Neutrophils Absolute Auto 2.8 K/mm3 (1.3-6.7); Neutrophils Percent Auto 34.9 % (45.5-73.1); Platelet Count Result 152 k/mm3 (150-375); Red Blood Count 4.41 M/mm3 (4.2-5.4); Red Cell Distribution Width 12.8 % (11.5-14.5); White Blood Count 7.9 K/mm3 (4.5-10.0)
[2024-08-07 08:21] LABS: Alanine Aminotransferase 28 U/L (6-35); Albumin Level 4.3 g/dL (3.5-5.1); Alkaline Phosphatase 85 U/L (38-126); Anion Gap 8 mmol/L (4-12); Aspartate Amino Transferase 27 U/L (14-36); Bilirubin,Total 0.5 mg/dL (0.2-1.3); Blood Urea Nitrogen 30 mg/dL (7-17); Calcium 9.4 mg/dL (8.4-10.2); Carbon Dioxide 28 mmol/L (22-30); Chloride 105 mmol/L (98-107); Cholesterol 197 mg/dL (0-200); Estimated Glomerular Filt Rate > 60; Glucose 106 mg/dL (65-110); HDL Direct 90 mg/dL; Potassium 4.6 mmol/L (3.4-5.0); Sodium 141 mmol/L (137-145); Triglycerides 56 mg/dL (<150)
[2024-08-07 08:32] LABS: LDL Cholesterol Direct 79 mg/dL
[2024-08-07 08:34] LABS: Hemoglobin A1C 5.8 % (<5.7)
== END 2024-08-07 07:31 | disposition home or self-care (01) ==
PROVIDERS: PCP Nurse Practitioner Family; Visit Provider Nurse Practitioner Family
DX: K21.9 Gastro-esophageal reflux disease without esophagitis (principal); Z79.899 Other long term (current) drug therapy; Z13.1 Encounter for screening for diabetes mellitus; F41.9 Anxiety disorder, unspecified; F32.9 Major depressive disorder, single episode, unspecified; Z13.29 Encounter for screening for other suspected endocrine disorder; Z87.19 Personal history of other diseases of the digestive system; E78.5 Hyperlipidemia, unspecified; E04.2 Nontoxic multinodular goiter
CPT/HCPCS: 36415; 80053; 80061; 83036; 84443; 85025